=== PATIENT | male | born 1980 | race Caucasian/White ===

== ENCOUNTER 2019-11-11 16:41 | Emergency (ER) | payer MEDICAID, SELFPAY ==
[2019-11-11 17:29] VITALS: BP 116/77; PULSE 76; RESP 16; TEMP 36.2; O2SAT 99
[2019-11-11 17:43] VITALS: BP 116/77; PULSE 76; RESP 16; TEMP 36.2; O2SAT 99; BMI 27.0
[2019-11-11 18:11] VITALS: BP 116/77; PULSE 76; RESP 16; TEMP 36.2; O2SAT 99
[2019-11-11 19:05] LABS: Amphetamine Screen Urine Not Detected (Not Detect); Barbiturates, Urine Not Detected (Not Detect); Benzodiazepines Screen Urine Not Detected (Not Detect); Cannabinoid Screen Urine Not Detected (Not Detect); Cocaine Screen Urine POSITIVE (Not Detect); Opiate Screen Urine POSITIVE (Not Detect); Phencyclidine Screen Urine Not Detected (Not Detect)
--- NOTE | 2019-11-11 19:24 | PC.NURSE ---
summary faxed to [facility]
--- NOTE | 2019-11-11 21:47 | PC.NURSE ---
pt has been sleeping since shift change at 19:00.
[2019-11-11 22:06] VITALS: BP 106/63; PULSE 73; RESP 16; TEMP 36.6; O2SAT 100
--- NOTE | 2019-11-11 22:51 | PC.NURSE ---
[facility] called, will try to come and evaluate by 11:30pm
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
[2019-11-12] MEDS: LORazepam 1 MG TABLET PO (00:24)
[2019-11-12 00:37] VITALS: BP 106/63; PULSE 73
[2019-11-12] MEDS: cloNIDine HCL 0.1 MG TABLET PO (00:37)
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
[2019-11-12 00:55] VITALS: RESP 18
--- NOTE | 2019-11-12 01:52 | PC.NURSE ---
pt discharged, security standing by to assist. pt upset because I am homeless, and don't have anywhere to go. pt got dressed and walked out of pod with security. pt given cards for the living room program, to call for assistance with housing.
== END 2019-11-12 01:58 | disposition home or self-care (01) ==
PROVIDERS: Nurse Practitioner Family; Emergency Provider Emergency Medicine
DX: F14.10 Cocaine abuse, uncomplicated (principal); F11.10 Opioid abuse, uncomplicated; L03.818 Cellulitis of other sites; F31.9 Bipolar disorder, unspecified; Z59.0 Homelessness
CPT/HCPCS: 36415; 80307; 99284

== ENCOUNTER 2019-12-24 00:01 | Emergency (ER) | payer MEDICAID, SELFPAY ==
--- NOTE | 2019-12-24 00:55 | ED.GENADULT ---
HPI - General Adult General Chief complaint: Skin/Abscess/Foreign Body Stated complaint: bug bite Time Seen by Provider: 12/24/19 00:37 Source: patient Mode of arrival: ambulatory Limitations: no limitations History of Present Illness HPI narrative: patient comes to the emergency room complaining a skin rash. Patient states it is very itchy. Patient states he was up [place] sleeping [place] a bridge, found a mattress, since then he thinks he contracted bedbugs. Patient states he has been treated previously at [facility] for similar rash. Patient complaining that 1 of the source is infected on his right knee. Related Data Previous Rx's Medication Instructions Recorded doxycycline monohydrate 100 mg PO BID 10 Days #20 cap 11/12/19 cephalexin [Keflex] 500 mg PO BID #20 cap 12/24/19 doxycycline monohydrate 100 mg PO DAILY #10 cap 12/24/19 hydrocortisone 1 applic TOPICAL TID PRN #20 g 12/24/19 Allergies Allergy/AdvReac Type Severity Reaction Status Date / Time shellfish Allergy Unknown anaphylaxis Unverified 06/30/18 00:00 shellfish derived Allergy Unknown SWELLING Unverified 10/26/19 19:14 [SHELLFISH DERIVED] fluticasone [Flovent HFA] AdvReac Unknown anxiety Verified 05/31/18 00:00 Review of Systems Review of Systems: Constitutional : No Weight loss, No Fever, No Chills, No Night Sweats, No Fatigue, No Malaise ENT/Mouth : No Hearing loss, No Ear Pain, No Nasal Congestion, No Sinus Pain, No Hoarseness, No sore throat, No Rhinorrhea, No Swallowing Difficulty Eyes: No Eye Pain, No Swelling, No Redness, No Foreign Body, No Discharge, No Vision Changes Cardiovascular : No Chest Pain, No SOB, No Dyspnea on Exertion, No Orthopnea, No Edema, No Palpitations Respiratory : No Cough, No Sputum, No Wheezing, No Smoke Exposure, No Dyspnea Gastrointestinal : No Nausea, No Vomiting, No Diarrhea, No Constipation, complaining of right upper quadrant pain Genitourinary : no irregular bleeding, No Dysuria, No Urinary Frequency, No Hematuria, No Urinary Incontinence, No Urgency, No Flank Pain, No Urinary Flow Changes, No Hesitancy Musculoskeletal : No joint pain, No Myalgias, No Joint Swelling Skin : skin lesions , itchy skin Neuro : No Weakness, No Numbness, No Paresthesias, No Loss of Consciousness, No Dizziness, No Headache Psych : No Anxiety/Panic, No Depression, No SI/HI/AH/VH, No Social Issues, Heme/Lymph: No Bruising, No Bleeding,No Lymphadenopathy Endocrine : No Polyuria, No Polydipsia, No Temperature Intolerance ON LICENSE OF [facility] Past Medical History Medical History (Updated 12/24/19 @ 02:53 by Meagan Aldrich MD) Anxiety Asthma Bipolar disorder Cocaine abuse Depression Hepatitis C Suicidal behavior Social History Social History Alcohol intake: current Alcohol intake frequency: a few times a week Alcohol type: beer and hard liquor Smoking Status: Current every day smoker Substance Use Type: Crack/Cocaine and Heroin Advance Directives: No Physical Exam Vital Signs: Appearance: Alert. Oriented X3. No acute distress. Eyes: Pupils equal, round and reactive to light. ENT: Pharynx normal. Neck: Normal inspection. Neck supple. No lymph nodes noted. No crepitus CVS: Normal heart rate and rhythm. Pulses normal. Normal S1 and S2 Respiratory: No respiratory distress. Breath sounds normal. No Wheezing. No rales Abdomen: Soft , tender to palpation on right upper quadrant, No rigidity. No distention. good BS x4 Skin: Skin warm and dry. patient has multiple skin lesions in his face chest all extremities bearing his back. Patient is actively picking on them. patient has 1 lesion that seems infected on his knee, since that is draining pus, does not seem that there is an abscess underneath. Scab was removed, no further pus drained Extremities: No lower extremity edema. No lower extremity edema. No Lacerations. No Rash Neuro: Oriented X 3. No motor deficit. No sensory deficit. Moving all extermities. No slurred speech. Course Course Course Narrative: SI discussed the plan with the patient to treat the rash and the abscess, and discussed discharging the patient, all of a sudden patient started saying that he is homeless, he has had right upper quadrant pain for 2 days. I discussed with the patient that we will do an evaluation for abdominal pain. Patient has what happens after the evaluation, discussed with the patient if there is no acute pathology, he will be discharged as planned. The patient stated that he would like to be Section 12 for [place] 35 by in for being homeless and needing help with housing. Patient denies suicidal or homicidal ideation. I discussed with the patient that a housing situation is not a reason to order a section 12 or 35 I requested records from [facility] regarding the patient's last visit, down information we got was a visit for asthma and tinea pedis, the body rash was not mentioned. patient's chemistry and CT scan is pending. if no acute abdominal pathology, patient may be discharged. Sign-out given to Dr. Cruz. Medical Decision Making Lab Data Result diagrams: 12/24/19 02:21 12/24/19 02:21 Labs: Lab Results 12/24/19 12/24/19 Range/Units 02:21 02:21 WBC 9.8 (4.8-10.8) X10*3/uL RBC 4.69 (4.60-5.80) X10*6/uL Hgb 13.1 L (14.0-18.0) g/dl Hct 40.3 L (42-52) % MCV 85.9 (80-98) fL MCH 27.9 (27.0-33.0) pg MCHC 32.5 (31.0-36.0) g/dl RDW 16.1 H (11.0-16.0) % Plt Count 257 (160-400) X10*3/uL MPV 9.6 (9.4-12.4) fL Immature Gran % (Auto) 0.3 (0.0-0.4) % Neut % (Auto) 66.7 (45-73) % Lymph % (Auto) 21.3 (20-40) % [place] % (Auto) 7.9 (2-11) % Eos % (Auto) 3.1 (0-4) % Baso % (Auto) 0.7 (0-2) % Lymph # (Auto) 2.1 (1.2-4.9) X10*3/uL [place] # (Auto) 0.8 (0.1-1.2) X10*3/uL Eos # (Auto) 0.3 (0.0-0.4) X10*3/uL Baso # (Auto) 0.1 (0.0-0.2) X10*3/uL Abs Immat Gran (auto) 0.03 (0.00-0.03) X10*3/uL Absolute Neuts (auto) 6.5 (2.0-8.3) X10*3/uL Absolute Nucleated RBC 0.000 (0.0-0.012) X10*3/uL Nucleated RBC % (auto) 0.0 (0.0-0.2) /100WBC Ethyl Alcohol < 10 mg/dL Discharge Plan Discharge Clinical Impression: Rash and nonspecific skin eruption, Homelessness Cellulitis Qualifiers: Site of cellulitis: unspecified site Qualified Code(s): L03.90 - Cellulitis, unspecified Abdominal pain Qualifiers: Abdominal location: right upper quadrant Qualified Code(s): R10.11 - Right upper quadrant pain Patient Disposition: Home, Self-Care Instructions: Cellulitis (ED), Abdominal Pain (ED) Additional Instructions: Please follow-up with your primary care physician tomorrow. If you have any worsening or new symptoms, please return to the emergency room or call 911 Prescriptions: New doxycycline monohydrate 100 mg capsule 100 mg PO DAILY Qty: 10 RF: 0 cephalexin [Keflex] 500 mg capsule 500 mg PO BID Qty: 20 RF: 0 hydrocortisone 2.5 % cream 1 applic topical TID PRN (Reason: itching) Qty: 20 RF: 0 No Action doxycycline monohydrate 100 mg capsule 100 mg PO BID 10 Days Qty: 20 RF: 0
[2019-12-24 02:26] LABS: Basophils Absolute Auto 0.1 X10*3/uL (0.0-0.2); Basophils Percent Auto 0.7 % (0-2); Eosinophils Absolute Auto 0.3 X10*3/uL (0.0-0.4); Eosinophils Percent Auto 3.1 % (0-4); Hematocrit 40.3 % (42-52); Hemoglobin 13.1 g/dl (14.0-18.0); Imm Gran Abs Auto 0.03 X10*3/uL (0.00-0.03); Imm Gran Pct Auto 0.3 % (0.0-0.4); Lymphocytes Absolute Auto 2.1 X10*3/uL (1.2-4.9); Lymphocytes Percent Auto 21.3 % (20-40); Mean Corpuscular HGB Conc 32.5 g/dl (31.0-36.0); Mean Corpuscular Hemoglobin 27.9 pg (27.0-33.0); Mean Corpuscular Volume 85.9 fL (80-98); Mean Platelet Volume 9.6 fL (9.4-12.4); Monocytes Absolute Auto 0.8 X10*3/uL (0.1-1.2); Monocytes Percent Auto 7.9 % (2-11); Neutrophils Absolute Auto 6.5 X10*3/uL (2.0-8.3); Neutrophils Percent Auto 66.7 % (45-73); Platelet Count 257 X10*3/uL (160-400); Red Blood Count 4.69 X10*6/uL (4.60-5.80); Red Cell Distribution Width 16.1 % (11.0-16.0); White Blood Count 9.8 X10*3/uL (4.8-10.8)
[2019-12-24 02:28] LABS: MANUAL DIFF FLAG NO
[2019-12-24 02:45] LABS: Ethanol < 10 mg/dL
--- NOTE | 2019-12-24 02:45 | CT_ITS ---
EXAMINATION: CT ABDOMEN AND PELVIS WITHOUT CONTRAST CLINICAL INFORMATION: Right upper quadrant pain. COMPARISON: None. TECHNIQUE: Contiguous axial thin section helical images of the abdomen and pelvis were performed without oral or IV contrast. The data set was reformatted in the coronal and sagittal planes and reviewed on an independent workstation. DLP: 538 mGy-cm. FINDINGS: The visualized lung bases are clear. The visualized portions of the heart are unremarkable. The liver is of normal size and attenuation without focal lesions nor intrahepatic biliary ductal dilation. A normal gallbladder is identified. There is no wall thickening or discernible pericholecystic fluid. The spleen, pancreas, adrenal glands are unremarkable. Both kidneys are of normal size and attenuation without hydronephrosis or nephrolithiasis. There is no abdominal free fluid. There is neither mesenteric nor retroperitoneal lymphadenopathy. There is a large amount of stool throughout the colon; otherwise, unremarkable unopacified loops of small and large bowel are identified. There is no pelvic free fluid. The urinary bladder is unremarkable. There is neither pelvic nor inguinal lymphadenopathy. Bone windows: Neither sclerotic nor lytic bone lesions are identified. CT/CT abdomen pelvis wo con IMPRESSION: Large amount of stool throughout the colon. No evidence for acute abdominal or pelvic inflammatory or infectious processes. Automated exposure control (Care Dose) Adjustment of the mA and/or kv according to patient size (this includes techniques or standardized protocols for targeted exams where dose is matched to indication / reason for exam; i.e. extremities or head).
[2019-12-24 02:57] LABS: Alanine Aminotransferase 19 U/L (0-40); Alkaline Phosphatase 79 U/L (39-117); Anion Gap 9 (12-20); Aspartate Amino Transferase 21 U/L (5-37); Bilirubin Direct 0.2 mg/dL (0.0-0.5); Bilirubin Total 0.3 mg/dL (0.0-1.0); Blood Urea Nitrogen 11 mg/dL (9-16); Calcium 8.8 mg/dL (8.4-10.2); Carbon Dioxide 29 mmol/L (22-29); Chloride 101 mmol/L (96-108); Estimated Glomerular Filt Rate > 60; Glucose Random 99 mg/dL (60-115); Lipase 9 U/L (8-78); Potassium 4.3 mmol/l (3.3-5.1); Sodium 135 mmol/L (135-145); Total Protein 7.6 g/dL (6.5-8.0)
[2019-12-24] MEDS: cephALEXin 500 MG CAPSULE PO (03:15)
[2019-12-24 03:16] VITALS: BP 119/73; PULSE 83; RESP 18; TEMP 37.1; O2SAT 99
--- NOTE | 2019-12-24 03:18 | PC.NURSE ---
PT HAS BEEN SLEEPING BUT WHEN AWAKE PT IS PICKING AT HIS SOARS TO HIS ARMS
--- NOTE | 2019-12-24 03:36 | PC.NURSE ---
pt has been sleeping and easy to wake, pt was given a sandwhich and gingerale. pt given discharge instructions all questions answered. pt left with a steady gait. pt has been up going to the bathroom with no difficutly urinating
== END 2019-12-24 03:39 | disposition home or self-care (01) ==
PROVIDERS: Emergency Provider Emergency Medicine
DX: L03.90 Cellulitis, unspecified (principal); R10.11 Right upper quadrant pain; F17.200 Nicotine dependence, unspecified, uncomplicated; F14.90 Cocaine use, unspecified, uncomplicated; F11.90 Opioid use, unspecified, uncomplicated; Z71.6 Tobacco abuse counseling; Z79.899 Other long term (current) drug therapy; Z59.0 Homelessness
CPT/HCPCS: 36415; 74176; 80048; 80076; 80320; 83690; 85025; 99284

== ENCOUNTER 2020-01-07 00:08 | Emergency (ER) | payer MEDICAID, SELFPAY ==
[2020-01-07 00:09] VITALS: BP 136/84; PULSE 102; RESP 16; TEMP 36.1; O2SAT 96; BMI 25.8
[2020-01-07 02:00] VITALS: BP 136/84; PULSE 100; RESP 16; TEMP 36.1; O2SAT 96
--- NOTE | 2020-01-07 02:45 | ED.SKABFB ---
HPI - Skin/Abscess/Foreign Bdy General Chief complaint: Skin/Abscess/Foreign Body Stated complaint: Abscess/Constipation Time Seen by Provider: 01/07/20 01:08 Source: patient Mode of arrival: ambulatory Limitations: no limitations History of Present Illness HPI narrative: Patient comes emergency room complaining of an abscess in his right buttocks. It has been present for 4 days. Patient has tried squeezing pus out but nothing has come out. Patient has history of multiple abscesses, patient admits to IV drug use. Patient was seen here couple of weeks ago, patient was prescribed cephalexin and doxycycline for cellulitis, patient did not moss picker his medication at the pharmacy. Patient presents today with a new abscess. Related Data Previous Rx's Medication Instructions Recorded doxycycline monohydrate 100 mg PO BID 10 Days #20 cap 11/12/19 cephalexin [Keflex] 500 mg PO BID #20 cap 12/24/19 doxycycline monohydrate 100 mg PO DAILY #10 cap 12/24/19 hydrocortisone 1 applic TOPICAL TID PRN #20 g 12/24/19 clindamycin HCl 300 mg PO TID #30 cap 01/07/20 Allergies Allergy/AdvReac Type Severity Reaction Status Date / Time shellfish Allergy Unknown anaphylaxis Unverified 06/30/18 00:00 shellfish derived Allergy Unknown SWELLING Unverified 10/26/19 19:14 [SHELLFISH DERIVED] fluticasone [Flovent HFA] AdvReac Unknown anxiety Verified 05/31/18 00:00 Review of Systems Review of Systems: Constitutional : No Weight loss, No Fever, No Chills, No Night Sweats, No Fatigue, No Malaise ENT/Mouth : No Hearing loss, No Ear Pain, No Nasal Congestion, No Sinus Pain, No Hoarseness, No sore throat, No Rhinorrhea, No Swallowing Difficulty Eyes: No Eye Pain, No Swelling, No Redness, No Foreign Body, No Discharge, No Vision Changes Cardiovascular : No Chest Pain, No SOB, No Dyspnea on Exertion, No Orthopnea, No Edema, No Palpitations Respiratory : No Cough, No Sputum, No Wheezing, No Smoke Exposure, No Dyspnea Gastrointestinal : No Nausea, No Vomiting, No Diarrhea, No Constipation, No abdominal Pain, No Hematochezia, No Melena Genitourinary : no irregular bleeding, No Dysuria, No Urinary Frequency, No Hematuria, No Urinary Incontinence, No Urgency, No Flank Pain, No Urinary Flow Changes, No Hesitancy Musculoskeletal : No joint pain, No Myalgias, No Joint Swelling Skin : skin abscess in buttocks Neuro : No Weakness, No Numbness, No Paresthesias, No Loss of Consciousness, No Dizziness, No Headache Psych : No Anxiety/Panic, No Depression, No SI/HI/AH/VH, No Social Issues, Heme/Lymph: No Bruising, No Bleeding,No Lymphadenopathy Endocrine : No Polyuria, No Polydipsia, No Temperature Intolerance FORMERLY [facility], [facility] Past Medical History Medical History Anxiety Asthma Bipolar disorder Cocaine abuse Depression Hepatitis C PTSD (post-traumatic stress disorder) Suicidal behavior Social History Social History Alcohol intake: never Smoking Status: Current every day smoker Substance Use Type: Crack/Cocaine and Heroin Advance Directives: No Advance Directives Information Provided: No Physical Exam Vital Signs: Vital Signs: Last Vital Signs Temp 97 F 01/07/20 00:09 Pulse 102 H 01/07/20 00:09 Resp 16 01/07/20 00:09 BP 136/84 01/07/20 00:09 Pulse Ox 96 01/07/20 00:09 Body Mass Index 25.8 Appearance: Alert. Oriented X3. No acute distress. Eyes: Pupils equal, round and reactive to light. ENT: Pharynx normal. Neck: Normal inspection. Neck supple. No lymph nodes noted. No crepitus CVS: Normal heart rate and rhythm. Pulses normal. Normal S1 and S2 Respiratory: No respiratory distress. Breath sounds normal. No Wheezing. No rales Abdomen: Soft and nontender. No rigidity. No distention. good BS x4 Skin: patient has a abscess in the right buttocks, 3 cm x 3 cm, erythematous, cellulitis surrounding. Bedside ultrasound shows cobblestoning pattern with no pocket of pus tech could be I and D Extremities: No lower extremity edema. No lower extremity edema. No Lacerations. No Rash Neuro: Oriented X 3. No motor deficit. No sensory deficit. Moving all extermities. No slurred speech.. Course Course Course Narrative: patient's labs are pending. At this time oral clindamycin given. Pending on lab results, patient may be discharged versus admitted. Sign out given to Dr. Cruz Discharge Plan Discharge Clinical Impression: Cellulitis Qualifiers: Site of cellulitis: buttock Qualified Code(s): L03.317 - Cellulitis of buttock Patient Disposition: Home, Self-Care Instructions: Cellulitis (ED) Prescriptions: New clindamycin HCl 300 mg capsule 300 mg PO TID Qty: 30 RF: 0 No Action doxycycline monohydrate 100 mg capsule 100 mg PO BID 10 Days Qty: 20 RF: 0 doxycycline monohydrate 100 mg capsule 100 mg PO DAILY Qty: 10 RF: 0 cephalexin [Keflex] 500 mg capsule 500 mg PO BID Qty: 20 RF: 0 hydrocortisone 2.5 % cream 1 applic topical TID PRN (Reason: itching) Qty: 20 RF: 0
[2020-01-07 03:08] LABS: Basophils Absolute Auto 0.1 X10*3/uL (0.0-0.2); Basophils Percent Auto 0.5 % (0-2); Eosinophils Absolute Auto 0.4 X10*3/uL (0.0-0.4); Eosinophils Percent Auto 2.9 % (0-4); Hematocrit 39.3 % (42-52); Hemoglobin 13.1 g/dl (14.0-18.0); Imm Gran Abs Auto 0.05 X10*3/uL (0.00-0.03); Imm Gran Pct Auto 0.4 % (0.0-0.4); Lymphocytes Percent Auto 22.3 % (20-40); MANUAL DIFF FLAG NO; Mean Corpuscular HGB Conc 33.3 g/dl (31.0-36.0); Mean Corpuscular Hemoglobin 28.1 pg (27.0-33.0); Mean Corpuscular Volume 84.3 fL (80-98); Mean Platelet Volume 9.6 fL (9.4-12.4); Monocytes Absolute Auto 1.1 X10*3/uL (0.1-1.2); Neutrophils Absolute Auto 8.8 X10*3/uL (2.0-8.3); Neutrophils Percent Auto 65.9 % (45-73); Platelet Count 225 X10*3/uL (160-400); Red Blood Count 4.66 X10*6/uL (4.60-5.80); Red Cell Distribution Width 15.6 % (11.0-16.0); White Blood Count 13.3 X10*3/uL (4.8-10.8)
[2020-01-07 03:26] LABS: Lactic Acid 0.8 mmol/L (0.5-2.0)
[2020-01-07 03:29] LABS: Anion Gap 12 (12-20); Blood Urea Nitrogen 11 mg/dL (9-16); Carbon Dioxide 27 mmol/L (22-29); Chloride 97 mmol/L (96-108); Creatinine Clr Calc Pharmacy 135.7; Estimated Glomerular Filt Rate > 60; Glucose Random 95 mg/dL (60-115); Sodium 132 mmol/L (135-145)
[2020-01-07] MEDS: polyethylene glycoL 3350 17 GM POWD.PACK PO (03:44)
== END 2020-01-07 04:08 | disposition home or self-care (01) ==
PROVIDERS: Emergency Provider Emergency Medicine; PCP Pediatrics
DX: L03.317 Cellulitis of buttock (principal); F14.90 Cocaine use, unspecified, uncomplicated; F11.90 Opioid use, unspecified, uncomplicated; F17.200 Nicotine dependence, unspecified, uncomplicated; Z71.6 Tobacco abuse counseling; Z79.899 Other long term (current) drug therapy
CPT/HCPCS: 36415; 80048; 83605; 85025; 87040; 99284

== ENCOUNTER 2020-05-20 17:42 | Inpatient (IN) | payer MEDICAID, SELFPAY ==
--- NOTE | ~2020-05-20 | XR_ITS ---
EXAMINATION: XR CHEST CLINICAL INFORMATION: Overdose COMPARISON: None TECHNIQUE: Frontal view of the chest was obtained. FINDINGS: No significant abnormality is noted involving the heart, lungs, mediastinum, bony thorax or soft tissues. XR/XR chest 1V IMPRESSION: Unremarkable examination.
[2020-05-20 17:56] VITALS: BP 153/96; PULSE 113; RESP 12; TEMP 37.1; O2SAT 95; BMI 24.3
--- NOTE | 2020-05-20 18:05 | ED.OVERDOSE ---
HPI - Overdose General Chief Complaint: Overdose Stated Complaint: SI/?od Source: patient Mode of arrival: ambulatory Limitations: no limitations History of Present Illness HPI Narrative: 39-year-old male with past medical history of substance abuse, significant psychiatric history has been admitted to [facility] in the past, presents with intentional overdose. Stated that he purchased clonidine on the street and took 24 tablets, Klonopin unknown dosage took 6 tablets, approximately 20 bags of heroin and an undisclosed amount of cocaine. Patient states he has been depressed for a long period of time, and feels that his life is worthless. complaint: intentional overdose Onset (ago): hour(s) (Within the hour of arrival) Intent: suicide attempt How Overdose Was Discovered: other (Patient walked to the emergency department) Context: Intentional Overdose: drug/ETOH problems Associated symptoms: depression Treatments Prior to Arrival: none Related Data Previous Rx's Medication Instructions Recorded doxycycline monohydrate 100 mg PO BID 10 Days #20 cap 11/12/19 cephalexin [Keflex] 500 mg PO BID #20 cap 12/24/19 doxycycline monohydrate 100 mg PO DAILY #10 cap 12/24/19 hydrocortisone 1 applic TOPICAL TID PRN #20 g 12/24/19 clindamycin HCl 300 mg PO TID #30 cap 01/07/20 Allergies Allergy/AdvReac Type Severity Reaction Status Date / Time shellfish Allergy Unknown anaphylaxis Verified 01/07/20 03:36 shellfish derived Allergy Unknown SWELLING Verified 01/07/20 03:36 [SHELLFISH DERIVED] fluticasone [Flovent HFA] AdvReac Unknown anxiety Verified 01/07/20 03:36 Review of Systems Review of Systems: Constitutional: No Fever, No Chills ENT/Mouth: No Ear Pain, No Nasal Congestion, No sore throat Eyes: No Eye Pain, No Swelling, No Redness Cardiovascular: No Chest Pain, No SOB Respiratory: No Cough, No Sputum, No Dyspnea Gastrointestinal: No Nausea, No Vomiting, No Diarrhea, No Hematochezia, No Melena Genitourinary: No Dysuria, No Urinary Frequency, No Hematuria Musculoskeletal: No Myalgias Skin: No Skin Lesions, No rash Neuro: No Weakness, No Numbness, No Paresthesias, No Dizziness, No Headache Psych: No Anxiety, positive Depression, positive suicidal ideation, positive suicide attempt with overdose, positive opioid, cocaine abuse Heme/Lymph: No Lymphadenopathy Endocrine: No Polyuria, No Polydipsia Yes all other systems are reviewed and are negative [facility] Past Medical History Attestation statement: The following information was validated with the patient. Source: old records reviewed Medical History Anxiety Asthma Bipolar disorder Cocaine abuse Depression Hepatitis C PTSD (post-traumatic stress disorder) Suicidal behavior Social History Social History Alcohol intake: never Smoking Status: Unknown if ever smoked Substance Use Type: Crack/Cocaine and Heroin Advance Directives: No Advance Directives Information Provided: Yes Physical Exam Vital Signs: Vital Signs: Last Vital Signs Temp 98 F 05/21/20 00:30 Pulse 68 05/21/20 02:00 Resp 13 05/21/20 02:00 BP 98/60 05/21/20 02:00 Pulse Ox 98 05/21/20 02:00 Body Mass Index 24.3 Appearance: Alert. Oriented X3. No acute distress. Head: Normal external exam. Normocephalic. Atraumatic. No Alexis signs noted. No raccoon eyes noted Eyes: PERRLA. EOMI. Conjunctiva and sclera normal. Eyelids normal. ENT: TM's Normal. Pharynx normal. Uvula midline. Moist mucous membranes. No trismus noted. No drooling noted. No muffled voice noted. Neck: Normal inspection. Neck supple. No adenopathy. Thyroid Normal. No meningeal signs. No neck mass noted. CVS: Normal heart rate and rhythm. Heart sound normal. No murmurs noted. Pulses equal to all extremities. Respiratory: No respiratory distress. Painless inspiration. Breath sounds normal. No wheezes/rales/rhonchi noted. Chest nontender. No accessory muscle usage noted or decreased air movement noted. Abdomen: Soft and nontender. Bowel sounds normal in all 4 quadrants. No distention noted. No organomegaly noted. No visible injury noted. Back: No CVA tenderness. Full range of motion noted. Skin: Skin warm and dry. Normal skin color. Normal skin turgor. No rashes/lesions/lacerations noted. Extremities: No lower extremity edema. Extremities exhibit normal range of motion. Extremities nontender. Neuro: cranial nerves 2-12 intact, no focal neural deficits, strength 5/5 to all extremities, No motor deficit. No sensory deficit. Reflexes normal. Course Course Course Narrative: 39-year-old male with past medical history of substance abuse presents with intentional overdose. Referred to up-to-date for clonidine overdose, plan is for activated charcoal. Discussion with Dr Bonilla regarding plan, he agrees with this plan. Will monitor closely with cardiac and continuous pulse oximetry. Nurse in the psych pod reached out to [facility] as well as [facility], unable to obtain his medication list, has not been to the [facility] in the past year. Patient does state that the last time he picked up medications that were prescribed to him were December of 2019, he has been purchasing his psychiatric meds on the street. 6:16 p.m. EKG obtained, normal sinus, QT 390, QTC 449. Will repeat in approximately 2 hours. Patient evaluated by this HIGH [employer]CHOOL PH[employer]ICAL EDUCATION TEACHER approximately every 15 minutes for the 1st 2 hours, patient is alert and oriented x4, answering questions politely and appropriately, when he does fall asleep his O2 sats dropped down into the 80s, O2 was initiated by RN. 8:29 p.m. EKG is normal sinus, QT 438, QTC 459 no significant difference from 1st EKG. Patient is medically cleared, section 12 signed by this HIGH SCHO[employer] PH[employer] EDUCATION TEACHER. 2:47 a.m. Physician observation , section 12 bed search. MDM - Overdose Differential Diagnosis Differential diagnosis: Likely suicide attempt by multiple drug overdose Medical Records Attestation: I reviewed the patient's medical records. Lab Data Attestation: I reviewed the patient's lab results. Result diagrams: 05/20/20 18:43 05/20/20 18:45 Labs: Lab Results 05/20/20 05/20/20 05/20/20 Range/Units 18:43 18:43 18:43 WBC 9.7 (4.8-10.8) X10*3/uL RBC 4.07 L (4.60-5.80) X10*6/uL Hgb 12.2 L (14.0-18.0) g/dl Hct 36.0 L (42-52) % MCV 88.5 (80-98) fL MCH 30.0 (27.0-33.0) pg MCHC 33.9 (31.0-36.0) g/dl RDW 13.6 (11.0-16.0) % Plt Count 194 (160-400) X10*3/uL MPV 9.8 (9.4-12.4) fL Immature Gran % (Auto) 0.3 (0.0-0.4) % Neut % (Auto) 69.7 (45-73) % Lymph % (Auto) 17.5 L (20-40) % [place] % (Auto) 9.6 (2-11) % Eos % (Auto) 2.4 (0-4) % Baso % (Auto) 0.5 (0-2) % Lymph # (Auto) 1.7 (1.2-4.9) X10*3/uL [place] # (Auto) 0.9 (0.1-1.2) X10*3/uL Eos # (Auto) 0.2 (0.0-0.4) X10*3/uL Baso # (Auto) 0.1 (0.0-0.2) X10*3/uL Abs Immat Gran (auto) 0.03 (0.00-0.03) X10*3/uL Absolute Neuts (auto) 6.8 (2.0-8.3) X10*3/uL Absolute Nucleated RBC 0.000 (0.0-0.012) X10*3/uL Nucleated RBC % (auto) 0.0 (0.0-0.2) /100WBC Sodium (135-145) mmol/L Potassium (3.3-5.1) mmol/L Chloride (96-108) mmol/L Carbon Dioxide (22-29) mmol/L Anion Gap (12-20) BUN (9-16) mg/dL Creatinine (0.5-1.4) mg/dL Estim Creat Clear Calc Estimated GFR Random Glucose (60-115) mg/dL Lactic Acid 1.5 (0.5-2.0) mmol/L Calcium (8.4-10.2) mg/dL Magnesium 2.0 (1.6-2.6) mg/dL Troponin I High Sens (<3.5-35.0) ng/L Salicylates (15-30) mg/dL Urine Opiates Screen (Not Detect) Acetaminophen (<30) mcg/mL Ur Barbiturates Screen (Not Detect) Ur Phencyclidine Scrn (Not Detect) Ur Amphetamines Screen (Not Detect) U Benzodiazepines Scrn (Not Detect) Urine Cocaine Screen (Not Detect) U Marijuana (THC) Screen (Not Detect) Ethyl Alcohol mg/dL Coronavirus (PCR) (Negative) Influenza Type A (PCR) (Negative) Influenza Type B (PCR) (Negative) RSV RNA Qual (PCR) (Negative) 05/20/20 05/20/20 05/20/20 Range/Units 18:43 18:45 18:45 WBC (4.8-10.8) X10*3/uL RBC (4.60-5.80) X10*6/uL Hgb (14.0-18.0) g/dl Hct (42-52) % MCV (80-98) fL MCH (27.0-33.0) pg MCHC (31.0-36.0) g/dl RDW (11.0-16.0) % Plt Count (160-400) X10*3/uL MPV (9.4-12.4) fL Immature Gran % (Auto) (0.0-0.4) % Neut % (Auto) (45-73) % Lymph % (Auto) (20-40) % [place] % (Auto) (2-11) % Eos % (Auto) (0-4) % Baso % (Auto) (0-2) % Lymph # (Auto) (1.2-4.9) X10*3/uL [place] # (Auto) (0.1-1.2) X10*3/uL Eos # (Auto) (0.0-0.4) X10*3/uL Baso # (Auto) (0.0-0.2) X10*3/uL Abs Immat Gran (auto) (0.00-0.03) X10*3/uL Absolute Neuts (auto) (2.0-8.3) X10*3/uL Absolute Nucleated RBC (0.0-0.012) X10*3/uL Nucleated RBC % (auto) (0.0-0.2) /100WBC Sodium 137 (135-145) mmol/L Potassium 4.1 (3.3-5.1) mmol/L Chloride 100 (96-108) mmol/L Carbon Dioxide 30 H (22-29) mmol/L Anion Gap 11 L (12-20) BUN 10 (9-16) mg/dL Creatinine 0.82 (0.5-1.4) mg/dL Estim Creat Clear Calc 115.8 Estimated GFR > 60 Random Glucose 150 H D (60-115) mg/dL Lactic Acid (0.5-2.0) mmol/L Calcium 8.8 (8.4-10.2) mg/dL Magnesium (1.6-2.6) mg/dL Troponin I High Sens < 3.5 (<3.5-35.0) ng/L Salicylates < 5.0 L (15-30) mg/dL Urine Opiates Screen (Not Detect) Acetaminophen < 1 (<30) mcg/mL Ur Barbiturates Screen (Not Detect) Ur Phencyclidine Scrn (Not Detect) Ur Amphetamines Screen (Not Detect) U Benzodiazepines Scrn (Not Detect) Urine Cocaine Screen (Not Detect) U Marijuana (THC) Screen (Not Detect) Ethyl Alcohol < 10 mg/dL Coronavirus (PCR) (Negative) Influenza Type A (PCR) (Negative) Influenza Type B (PCR) (Negative) RSV RNA Qual (PCR) (Negative) 05/20/20 05/20/20 Range/Units 18:45 20:24 WBC (4.8-10.8) X10*3/uL RBC (4.60-5.80) X10*6/uL Hgb (14.0-18.0) g/dl Hct (42-52) % MCV (80-98) fL MCH (27.0-33.0) pg MCHC (31.0-36.0) g/dl RDW (11.0-16.0) % Plt Count (160-400) X10*3/uL MPV (9.4-12.4) fL Immature Gran % (Auto) (0.0-0.4) % Neut % (Auto) (45-73) % Lymph % (Auto) (20-40) % [place] % (Auto) (2-11) % Eos % (Auto) (0-4) % Baso % (Auto) (0-2) % Lymph # (Auto) (1.2-4.9) X10*3/uL [place] # (Auto) (0.1-1.2) X10*3/uL Eos # (Auto) (0.0-0.4) X10*3/uL Baso # (Auto) (0.0-0.2) X10*3/uL Abs Immat Gran (auto) (0.00-0.03) X10*3/uL Absolute Neuts (auto) (2.0-8.3) X10*3/uL Absolute Nucleated RBC (0.0-0.012) X10*3/uL Nucleated RBC % (auto) (0.0-0.2) /100WBC Sodium (135-145) mmol/L Potassium (3.3-5.1) mmol/L Chloride (96-108) mmol/L Carbon Dioxide (22-29) mmol/L Anion Gap (12-20) BUN (9-16) mg/dL Creatinine (0.5-1.4) mg/dL Estim Creat Clear Calc Estimated GFR Random Glucose (60-115) mg/dL Lactic Acid (0.5-2.0) mmol/L Calcium (8.4-10.2) mg/dL Magnesium (1.6-2.6) mg/dL Troponin I High Sens (<3.5-35.0) ng/L Salicylates (15-30) mg/dL Urine Opiates Screen POSITIVE H (Not Detect) Acetaminophen (<30) mcg/mL Ur Barbiturates Screen Not Detected (Not Detect) Ur Phencyclidine Scrn Not Detected (Not Detect) Ur Amphetamines Screen Not Detected (Not Detect) U Benzodiazepines Scrn Not Detected (Not Detect) Urine Cocaine Screen POSITIVE H (Not Detect) U Marijuana (THC) Screen Not Detected (Not Detect) Ethyl Alcohol mg/dL Coronavirus (PCR) NEGATIVE (Negative) Influenza Type A (PCR) NEGATIVE (Negative) Influenza Type B (PCR) NEGATIVE (Negative) RSV RNA Qual (PCR) NEGATIVE (Negative) Imaging Data Chest x-ray: Attestation: I personally reviewed and interpreted this imaging study as follows: Radiologist's impression: EXAMINATION: XR CHEST CLINICAL INFORMATION: Overdose COMPARISON: None TECHNIQUE: Frontal view of the chest was obtained. FINDINGS: No significant abnormality is noted involving the heart, lungs, mediastinum, bony thorax or soft tissues. XR/XR chest 1V IMPRESSION: Unremarkable examination. ECG Data Attestation: I personally reviewed and interpreted this ECG as follows: ECG interpretation date: 05/20/20 ECG interpretation time: 18:16 Interpretation: Vent. rate 80 BPM OH interval 144 ms QRS duration 86 ms QT/QTc 390/449 ms P-R-T axes 25 61 43 Normal sinus rhythm Normal ECG No previous ECGs available Second EKG May 20, 2020 time 8:29 p.m. Vent. rate 66 BPM OH interval 182 ms QRS duration 90 ms QT/QTc 438/459 ms P-R-T axes 23 26 15 Normal sinus rhythm Normal ECG When compared with ECG of 20-MAY-2020 18:16, No significant change was found Critical Care Time Critical Care Time Critical Care Time: Yes Total Critical Care Time: 120 Attestation: I have personally provided critical care time exclusive of time spent on separately billable procedures. Time includes review of laboratory data, radiology results, discussion with consultants, and monitoring for potential decompensation. Interventions were performed as documented. Discharge Plan Discharge Clinical Impression: Drug overdose Qualifiers: Encounter type: initial encounter Injury intent: intentional self-harm Qualified Code(s): T50.902A - Poisoning by unspecified drugs, medicaments and biological substances, intentional self-harm, initial encounter Suicide attempt by multiple drug overdose Qualifiers: Encounter type: initial encounter Qualified Code(s): T50.912A - Poisoning by multiple unspecified drugs, medicaments and biological substances, intentional self-harm, initial encounter Prescriptions: No Action doxycycline monohydrate 100 mg capsule 100 mg PO BID 10 Days Qty: 20 RF: 0 doxycycline monohydrate 100 mg capsule 100 mg PO DAILY Qty: 10 RF: 0 cephalexin [Keflex] 500 mg capsule 500 mg PO BID Qty: 20 RF: 0 hydrocortisone 2.5 % cream 1 applic topical TID PRN (Reason: itching) Qty: 20 RF: 0 clindamycin HCl 300 mg capsule 300 mg PO TID Qty: 30 RF: 0
--- NOTE | 2020-05-20 18:08 | ECG_ITS ---
Test Reason : OVERDOSE Blood Pressure : / mmHG Vent. Rate : 080 BPM Atrial Rate : 080 BPM P-R Int : 144 ms QRS Dur : 086 ms QT Int : 390 ms P-R-T Axes : 025 061 043 degrees QTc Int : 449 ms Normal sinus rhythm Normal ECG No previous ECGs available Referred By: Rama Evans Electronically Signed By:VERNON CRESPO
[2020-05-20 18:18] VITALS: BP 153/96; PULSE 113; RESP 12; TEMP 37.1; O2SAT 95
[2020-05-20] MEDS: Activated charcoaL 50 GM/240 ML ORAL.SUSP 100 GM PO (18:28)
[2020-05-20 18:53] LABS: MANUAL DIFF FLAG NO
[2020-05-20 18:54] LABS: Basophils Absolute Auto 0.1 X10*3/uL (0.0-0.2); Basophils Percent Auto 0.5 % (0-2); Eosinophils Absolute Auto 0.2 X10*3/uL (0.0-0.4); Eosinophils Percent Auto 2.4 % (0-4); Hemoglobin 12.2 g/dl (14.0-18.0); Imm Gran Abs Auto 0.03 X10*3/uL (0.00-0.03); Imm Gran Pct Auto 0.3 % (0.0-0.4); Lymphocytes Absolute Auto 1.7 X10*3/uL (1.2-4.9); Lymphocytes Percent Auto 17.5 % (20-40); Mean Corpuscular HGB Conc 33.9 g/dl (31.0-36.0); Mean Corpuscular Volume 88.5 fL (80-98); Mean Platelet Volume 9.8 fL (9.4-12.4); Monocytes Absolute Auto 0.9 X10*3/uL (0.1-1.2); Monocytes Percent Auto 9.6 % (2-11); Neutrophils Absolute Auto 6.8 X10*3/uL (2.0-8.3); Neutrophils Percent Auto 69.7 % (45-73); Platelet Count 194 X10*3/uL (160-400); Red Blood Count 4.07 X10*6/uL (4.60-5.80); Red Cell Distribution Width 13.6 % (11.0-16.0); White Blood Count 9.7 X10*3/uL (4.8-10.8)
--- NOTE | 2020-05-20 19:05 | PC.NURSE ---
Nurse to nurse received from SILAS Weber. Pt sleeping initially when this RN entered room, awoke to tactile stimulation. Pupils remain pinpoint, answers questions appropriately. Denies pain or diff breathing. When asleep, SPO2 noted to drop to 77%, up to 97% immediately when awoken. Pt placed on 2L via NC for support. HR/RR WNL. Sitter in place, will continue to closely monitor.
[2020-05-20 19:24] LABS: Lactic Acid 1.5 mmol/L (0.5-2.0)
[2020-05-20 19:25] LABS: Ethanol < 10 mg/dL
[2020-05-20 19:32] LABS: Acetaminophen LAB < 1 mcg/mL (<30); Salicylate < 5.0 mg/dL (15-30)
[2020-05-20 19:33] LABS: Influenza A PCR NEGATIVE (Negative); Influenza B PCR NEGATIVE (Negative); Resp Syncy Virus RNA Qual PCR NEGATIVE (Negative); SARS COV2 PCR INHOUSE NEGATIVE (Negative)
[2020-05-20 19:34] LABS: Troponin-I High Sensitivity < 3.5 ng/L (<3.5-35.0)
[2020-05-20 19:57] LABS: Anion Gap 11 (12-20); Blood Urea Nitrogen 10 mg/dL (9-16); Calcium 8.8 mg/dL (8.4-10.2); Carbon Dioxide 30 mmol/L (22-29); Chloride 100 mmol/L (96-108); Creatinine Clr Calc Pharmacy 115.8; Estimated Glomerular Filt Rate > 60; Glucose Random 150 mg/dL (60-115); Potassium 4.1 mmol/L (3.3-5.1); Sodium 137 mmol/L (135-145)
[2020-05-20 20:06] VITALS: BP 97/58; PULSE 68; RESP 18; TEMP 37.1; O2SAT 95
--- NOTE | 2020-05-20 20:13 | ECG_ITS ---
Test Reason : REPEAT Blood Pressure : / mmHG Vent. Rate : 066 BPM Atrial Rate : 066 BPM P-R Int : 182 ms QRS Dur : 090 ms QT Int : 438 ms P-R-T Axes : 023 026 015 degrees QTc Int : 459 ms Normal sinus rhythm Normal ECG When compared with ECG of 20-MAY-2020 18:16, No significant change was found Referred By: Rama Evans Electronically Signed By:VERNON CRESPO
--- NOTE | 2020-05-20 20:40 | MHC.RECOVSUP ---
Overdose/SI o Current location: ED-21 o Identified substance use concern: Opioid and other Benzodiazepine - Overdose <del>-</del> <del>Withdrawal</del> <del>-</del> <del>Seeking</del> <del>ATS</del> <del>(detox)</del> - Support ? Intervention: o ATS bed search started/completed/in process <del>o</del> <del>MAT</del> <del>started</del> <del>or</del> <del>to</del> <del>be</del> <del>started</del> <del>o</del> <del>Community</del> <del>resources</del> <del>provided</del> o Harm reduction discussion ? Plan: <del>o</del> <del>Referral</del> <del>to</del> <del>[facility]</del> <del>o</del> <del>Bed</del> <del>search</del> <del>in</del> <del>progress</del> <del>to</del> o Follow up tomorrow o Patient awaiting crisis evaluation o <del>Patient</del> <del>to</del> <del>follow</del> <del>up</del> <del>with</del> <del>[facility]</del> <del>after</del> <del>discharge</del> ? Additional information: I was able to engage briefly with client and gather that pt currently suffers from homelessness. pt is not on MAT but has been in a clinic in the past. pt also stated that he has a hx of mental health. pt currently has a sitter by his bedside and at the moment and is waiting on [facility] for a crisis evaluation. Please follow up in the am if pt is still in the ED.
[2020-05-20 21:00] LABS: Amphetamine Screen Urine Not Detected (Not Detect); Barbiturates, Urine Not Detected (Not Detect); Benzodiazepines Screen Urine Not Detected (Not Detect); Cannabinoid Screen Urine Not Detected (Not Detect); Cocaine Screen Urine POSITIVE (Not Detect); Opiate Screen Urine POSITIVE (Not Detect); Phencyclidine Screen Urine Not Detected (Not Detect)
[2020-05-20 21:10] VITALS: BP 102/63; PULSE 64; RESP 16; O2SAT 99
[2020-05-20 22:16] VITALS: BP 94/55; PULSE 63; RESP 14; TEMP 36.4; O2SAT 98
--- NOTE | 2020-05-20 22:54 | PC.NURSE ---
Pt awake and alert, cleared to eat per ED provider. Snacks provided. Sit remains in place
[2020-05-21] VITALS (9 sets, daily range): BP systolic 95–116; BP diastolic 57–70; PULSE 55–85; RESP 10–17; TEMP 36.4–36.6; O2SAT 95–98
--- NOTE | 2020-05-21 07:59 | PC.NURSE ---
[facility] contacted regarding evaluation - no clinician available until after 12 today.
--- NOTE | 2020-05-21 11:29 | PC.NURSE ---
this rn spoke with calista (rn) from [facility] [phone]. pt had methadone 100mg po x 1 on 05/20/20 at 1018 per calista (rn), aware.
--- NOTE | 2020-05-21 16:02 | PC.NURSE ---
PT ambulated to pod with steady gait, calm and cooperative, denies complaints. PT waiting to be seen.
--- NOTE | 2020-05-21 19:45 | MHC.CARE ---
Pt evaluated by CARE team due to [facility] being unable to send a clinician within 24 hours of referral for assessment. Disposition for inpt psychiatric admission, being held in ED on Sect 12a status. Pt is agreeable to and advocating for an admission at this time. Pt will remain in ED until bed placement is secured.
--- NOTE | 2020-05-21 19:56 | PC.NURSE ---
Report received. PT is resting in bed. Calm and cooperative. PT is inpatient bed search.
[2020-05-21] MEDS: LORazepam 1 MG TABLET PO (22:14)
--- NOTE | 2020-05-21 22:33 | PC.NURSE ---
PT was complaining about not receiving his night time meds. PT stated that he usually takes remeron and clonazepam at bed time to help him sleep. This nurse called the PT's pharmacy on file to confirm med list but was not effective. Pharmacy stated that PT has not picked up meds from [facility] since 2019. PT stated that he uses a different pharmacy, but that pharmacy was not open at this time. Provider informed. Provider ordered one time dose of Ativan to help PT relax and sleep.
[2020-05-22] VITALS (9 sets, daily range): BP systolic 126–150; BP diastolic 81–92; PULSE 55–86; RESP 16–20; TEMP 36.7; O2SAT 96–98
[2020-05-22] MEDS: Acetaminophen 325 MG TABLET 650 MG PO (00:31)
[2020-05-22] MEDS: Ibuprofen 800 MG TABLET PO (06:07)
[2020-05-22] MEDS: Acetaminophen 325 MG TABLET PO ×2 (10:06→16:36)
[2020-05-22] MEDS: Ibuprofen 400 MG TABLET PO ×2 (10:07→19:24)
--- NOTE | 2020-05-22 10:17 | PC.NURSE ---
pt c/o 10/18 lower back pain, med x 1 with motrin 400mg po x 1 and tylenol 325mg po x 1 at 1005
[2020-05-22] MEDS: LORazepam 1 MG TABLET PO ×2 (12:59→19:24)
--- NOTE | 2020-05-22 13:11 | PC.NURSE ---
pt c/o increase anxiety, med x 1 with ativan 1mg po. pt is resting, resp even and unlabored. pt aware of plan of care.
--- NOTE | 2020-05-22 18:45 | PC.NURSE ---
Pt resting in bed at current, no complaints at this time, calm and cooperative.
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
[2020-05-23] VITALS (8 sets, daily range): BP systolic 119–150; BP diastolic 68–88; PULSE 68–110; RESP 16; TEMP 36.2–36.6; O2SAT 98; BMI 28.7
[2020-05-23] MEDS: LORazepam 1 MG TABLET PO ×3 (09:38→20:18)
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
[2020-05-23] MEDS: Ibuprofen 400 MG TABLET PO (13:54)
[2020-05-23] MEDS: cloNIDine HCL 0.1 MG TABLET PO ×2 (14:25→20:18)
[2020-05-23] MEDS: Mirtazapine 7.5 MG TABLET PO (20:19)
[2020-05-23] MEDS: traZODone HCL 50 MG TABLET PO (20:21)
[2020-05-24 06:45] VITALS: BP 116/80; PULSE 78; RESP 16; TEMP 36.7; O2SAT 97
[2020-05-24 08:40] VITALS: BP 116/80; PULSE 78
[2020-05-24] MEDS: LORazepam 1 MG TABLET PO ×2 (08:40→18:58)
[2020-05-24] MEDS: cloNIDine HCL 0.1 MG TABLET PO ×2 (08:40→18:58)
--- NOTE | 2020-05-24 12:06 | HO.ADDICTCON ---
History of Present Illness Date of Service: 05/24/2020 Chief Complaint: RECURRENT MAJOR DEPRESSION,PTSD,OPIATE USE DISORDE HPI Past Psychiatric History: IP: Several Suicide attempts: 2 Trials-several Recent meds from [facility] [phone] Remeron 7.5 mg hs, Wellbutrin XL 150 mg a.m. Atarax 25 mg 1-2 tabs bid prn-last filled around Feb 15, 2020 Diagnostics Vital Signs (24Hr): Vital Signs - 24 hr 05/23/20 14:25 05/23/20 16:14 05/23/20 20:00 Temperature 97.1 F 97.8 F Pulse Rate 78 71 68 Respiratory Rate Blood Pressure 143/88 H 119/76 150/88 H Pulse Oximetry 05/23/20 20:18 05/24/20 06:45 05/24/20 08:40 Temperature 98.1 F Pulse Rate 88 78 78 Respiratory Rate 16 Blood Pressure 150/68 H 116/80 116/80 Pulse Oximetry 97 Body Mass Index 28.7 Labs Results: 05/20/20 18:43 05/20/20 18:45 Imaging Radiology Impressions: ITS Impressions Chest X-Ray 05/20/20 18:07 IMPRESSION: Unremarkable examination. Medications Medications Current Medications Generic Name Dose Route Start Last Admin Trade Name Freq PRN Reason Stop Dose Admin Bupropion HCl 150 mg 05/24/20 09:00 05/24/20 08:42 Bupropion Hcl Xl 150 Mg Tab.Er.24h PO Not Given DAILY ASIF Clonidine HCl 0.1 mg 05/23/20 14:20 05/24/20 08:40 Clonidine Hcl 0.1 Mg Tablet PO 0.1 mg TID PRN Administration withdrawal Protocol Ibuprofen 400 mg 05/22/20 09:43 05/23/20 13:54 Ibuprofen 400 Mg Tablet PO 05/27/20 09:42 400 mg TID PRN Administration Pain, Mild (Pain Scale 1-3) Lorazepam 1 mg 05/23/20 13:58 05/24/20 08:40 Lorazepam 1 Mg Tablet PO 1 mg Q6H PRN Administration withdrawal sx Magnesium Hydroxide 30 ml 05/22/20 20:38 Milk Of Magnesia 30 Ml Oral.Susp PO DAILY PRN Constipation Methadone HCl 100 mg 05/23/20 09:30 05/24/20 08:34 Methadone Hcl 1 Mg/0.1 Ml Oral.Conc PO 100 mg DAILY ASIF Administration Mirtazapine 7.5 mg 05/23/20 21:00 05/23/20 20:19 Mirtazapine 7.5 Mg Tablet PO 7.5 mg BEDTIME ASIF Administration Nicotine 21 mg 05/22/20 21:00 05/24/20 08:43 Nicotine 21 Mg Patch.Td24 TRANSDERMA Not Given DAILY SAIF Nicotine Polacrilex 4 mg 05/22/20 20:53 Nicotine Polacrilex 2 Mg Gum BUCCAL Q2H PRN Nicotine Cravings Trazodone HCl 50 mg 05/23/20 14:32 05/23/20 20:21 Trazodone Hcl 50 Mg Tablet PO 50 mg BEDTIME PRN Administration Insomnia Allergies Allergies Allergy/AdvReac Type Severity Reaction Status Date / Time shellfish Allergy Unknown anaphylaxis Verified 01/07/20 03:36 shellfish derived Allergy Unknown SWELLING Verified 01/07/20 03:36 [SHELLFISH DERIVED] fluticasone [Flovent HFA] AdvReac Unknown anxiety Verified 01/07/20 03:36 Assessment & Plan Greater than 50% of the session was spent on counseling and/or coordination of care [facility] Past Medical History Medical History (Updated 05/23/20 @ 16:19 by Daily Vasquez APRN) Anxiety Asthma Bipolar disorder Cocaine abuse Cocaine use disorder Depression Hepatitis C Opioid use disorder PTSD (post-traumatic stress disorder) PTSD (post-traumatic stress disorder) Recurrent major depression-severe Suicidal behavior Social History Social History Household Members: None Housing: Other Housing Other:: rents a room Do you presently have visiting nurse or other home services: No Alcohol intake: never Smoking Status: Current every day smoker Tobacco Type: Cigarette Packs Per Day: 1 Cigarettes Per Day: 20.0 Smoked in Last 30 Days: Yes Patient Interested in Nicotine Replacement: Yes Patient Given Instructions on How to Stop Smoking: Yes Date Education Initiated: 05/22/20 Second Hand Smoke Exposure: Yes Use of substances other than those prescribed or required for medical reasons: Yes Substance Use Type: Crack/Cocaine, Heroin and IV Drugs Substance Use Frequency: Daily Last Used Substance: Just Prior to Admission Currently Displaying Signs/Symptoms of Drug Intoxication Withdrawal: Yes (pt reports sweats, generalized body aches) Any prior treatment program specific to substance use: Yes Have you been hit, kicked, punched, or otherwise hurt by someone within the past year? If so, by whom?: No Do you feel safe in your current relationship?: Yes Is there a partner from a previous relationship who is making you feel unsafe now?: No Are you made to feel afraid or neglected: No Advance Directives: No Advance Directives Information Provided: Yes Do you have thoughts of harming others: None Do you have a plan to hurt others: No Plan Recently lost weight without trying: Yes service: No Sexual orientation: Straight/Heterosexual
[2020-05-24 13:31] VITALS: BP 110/69; PULSE 86
[2020-05-24 16:00] VITALS: PULSE 111
--- NOTE | 2020-05-24 16:39 | PM.EVENT ---
Event Note Date of Service: 05/24/20 Event Note: Addiction consult note: COnsult requested as patient was requesting increase of methadone dose. Currently patient is being prescribed 100mg methadone QD. Patient seen on [facility]5. He reports that he often feels sore, has body aches and is sweaty. He denies any addiciotnal sx. When asked how long sx have been present, pt reports they have been there for quite some time. He states he is seen at [facility] and and dose was last increased 2-3 weeks ago. Plan: -Increased to methadone doses should be done in collaboration with outpatient OTP -Pt educated regarding this process and verbalized understanding and agreement
--- NOTE | 2020-05-24 18:00 | P.PNPSI_ITS ---
Subjective Subjective Date of Service: 05/24/20 Reason For Visit: RECURRENT MAJOR DEPRESSION,PTSD,OPIATE USE DISORDE Subjective Notes: Conditional Voluntary Interim History: Pt reports sleep disturbance and body aches. Call to Dr. Roberts's office for med reconciliation without call back [phone].Pt considering TDN. Reports addiction team will not increase Methadone and he is not able to go to [facility] ([facility] he reports). Discussed completing withdrawal, getting on a secure regime and assessing other available options which he agrees to Medication Compliance: Yes Side effects from medications: No Attending Groups: No Review of Systems Review of Systems Yes all other systems are reviewed and are negative (denies) Reports behavioral changes Psychiatric: Reports abnormal sleep pattern, Reports behavioral changes and Reports irritability Mental Status Exam Mental Status Exam Patient Appearance: Disheveled Patient Orientation: Person, Place, Time and Situation Level of Consciousness: Awake and Alert Patient Behavior: Guarded, Talkative, Suspicious and Anxious Mood Description: Withdrawn Affect Description: Flat Patient Cognition Impaired: No Ability to Follow Directions: Good Speech Pattern: Spontaneous Speech Memory Description: Episodic Impaired Hallucinations: None Delusions: Not Present Thought Process: Distracted and Rumination Thought Content: positive for Anthon and positive for Circumstantial Depressive Symptoms: Increased Anxiety, Insomnia, Difficulty Sleeping and Thoughts of /Suicide (denies SI) Abnormal Motor Activity Signs and Symptoms: Restlessness Judgement: Good Diagnostics Vital Signs (24Hr): Vital Signs - 24 hr 05/23/20 20:00 05/23/20 20:18 05/24/20 06:45 Temperature 97.8 F 98.1 F Pulse Rate 68 88 78 Respiratory Rate 16 Blood Pressure 150/88 H 150/68 H 116/80 Pulse Oximetry 97 05/24/20 08:40 05/24/20 13:31 Temperature Pulse Rate 78 86 Respiratory Rate Blood Pressure 116/80 110/69 Pulse Oximetry Body Mass Index 28.7 Labs Results: 05/20/20 18:43 05/20/20 18:45 Imaging Radiology Impressions: ITS Impressions Chest X-Ray 05/20/20 18:07 IMPRESSION: Unremarkable examination. Medications Medications Current Medications Generic Name Dose Route Start Last Admin Trade Name Freq PRN Reason Stop Dose Admin Clonazepam 0.5 mg 05/24/20 21:00 Clonazepam 0.5 Mg Tablet PO BID ASIF Clonidine HCl 0.1 mg 05/23/20 14:20 05/24/20 08:40 Clonidine Hcl 0.1 Mg Tablet PO 0.1 mg TID PRN Administration withdrawal Protocol Fluoxetine HCl 10 mg 05/25/20 09:00 Fluoxetine Hcl Oral Solution 20 Mg/5 Ml Solution PO DAILY ASIF Ibuprofen 400 mg 05/22/20 09:43 05/23/20 13:54 Ibuprofen 400 Mg Tablet PO 05/27/20 09:42 400 mg TID PRN Administration Pain, Mild (Pain Scale 1-3) Lorazepam 1 mg 05/23/20 13:58 05/24/20 08:40 Lorazepam 1 Mg Tablet PO 1 mg Q6H PRN Administration withdrawal sx Magnesium Hydroxide 30 ml 05/22/20 20:38 Milk Of Magnesia 30 Ml Oral.Susp PO DAILY PRN Constipation Methadone HCl 100 mg 05/23/20 09:30 05/24/20 08:34 Methadone Hcl 1 Mg/0.1 Ml Oral.Conc PO 100 mg DAILY ASIF Administration Mirtazapine 15 mg 05/24/20 21:00 Mirtazapine 15 Mg Tablet PO BEDTIME ASIF Nicotine 21 mg 05/22/20 21:00 05/24/20 08:43 Nicotine 21 Mg Patch.Td24 TRANSDERMA Not Given DAILY ASIF Nicotine Polacrilex 4 mg 05/22/20 20:53 Nicotine Polacrilex 2 Mg Gum BUCCAL Q2H PRN Nicotine Cravings Trazodone HCl 50 mg 05/23/20 14:32 05/23/20 20:21 Trazodone Hcl 50 Mg Tablet PO 50 mg BEDTIME PRN Administration Insomnia Allergies Allergies Allergy/AdvReac Type Severity Reaction Status Date / Time shellfish Allergy Unknown anaphylaxis Verified 01/07/20 03:36 shellfish derived Allergy Unknown SWELLING Verified 01/07/20 03:36 [SHELLFISH DERIVED] fluticasone [Flovent HFA] AdvReac Unknown anxiety Verified 01/07/20 03:36 Assessment & Plan Assessment & Plan (1) Suicide attempt by multiple drug overdose: Qualifiers: Encounter type: initial encounter Qualified Code(s): T50.912A - Poisoning by multiple unspecified drugs, medicaments and biological substances, intentional self-harm, initial encounter Status: Acute Code(s): T50.912A - Poisoning by multiple unspecified drugs, medicaments and biological substances, intentional self-harm, initial encounter Assessment and Plan: Suicide attempt-pt has recently lost partner and is struggling with his loss. (2) Opioid use disorder: Status: Acute Code(s): F11.99 - Opioid use, unspecified with unspecified opioid-induced disorder Assessment and Plan: -Continue Methadone- Message left with [facility] to discuss if his team wants to increase dosing (3) Cocaine use disorder: Status: Acute Code(s): F14.10 - Cocaine abuse, uncomplicated Assessment and Plan: -Pt discussed going to [facility] upon discharge or longer term residential program. He is unable to go to [facility] but will consider other options (4) PTSD (post-traumatic stress disorder): Status: Acute Code(s): F43.10 - Post-traumatic stress disorder, unspecified (5) Recurrent major depression-severe: Status: Acute Code(s): F33.2 - Major depressive disorder, recurrent severe without psychotic features Assessment and Plan: Depressed, angry and withdrawn today. Prozac 10 mg daily Increase Remeron to 15 mg hs Wellbutrin XL 150 mg a.m. discontinued- pt refuses Klonopin 0.5 mg bid Message left with Dr. Roberts's office to discuss regime [phone]. Greater than 50% of the session was spent on counseling and/or coordination of care Reason for contiued inpatient stay Substantial Risk for: harm to self, harm to others, inability to function and rapid decompensation
[2020-05-24 18:58] VITALS: BP 123/81; PULSE 111
[2020-05-24 19:05] VITALS: BP 123/81; PULSE 111; TEMP 36.2
[2020-05-24] MEDS: clonazePAM 0.5 MG TABLET PO (22:36)
[2020-05-24] MEDS: Mirtazapine 15 MG TABLET PO (22:36)
[2020-05-24] MEDS: traZODone HCL 50 MG TABLET PO (22:37)
[2020-05-25] VITALS (8 sets, daily range): BP systolic 110–115; BP diastolic 63–75; PULSE 86–116; RESP 16; TEMP 36.9; O2SAT 99
[2020-05-25] MEDS: clonazePAM 0.5 MG TABLET PO (08:13)
[2020-05-25] MEDS: FLUoxetine HCl Oral Solution 20 MG/5 ML SOLUTION 10 MG PO (08:13)
[2020-05-25 08:55] LABS: Estimated Average Glucose 105 mg/dL; Hemoglobin A1c % 5.3 %
[2020-05-25 09:19] LABS: Cholesterol 203 mg/dL; HDL Cholesterol 42 mg/dL; LDL Cholesterol Calculated 141 mg/dl; Triglycerides 100 mg/dL
[2020-05-25] MEDS: LORazepam 1 MG TABLET PO ×2 (09:22→19:27)
[2020-05-25] MEDS: cloNIDine HCL 0.1 MG TABLET PO ×2 (09:22→19:27)
[2020-05-25 09:41] LABS: Thyroid Stimulating Hormone 0.86 uIU/mL (0.32-4.0)
[2020-05-25] MEDS: Nicotine Polacrilex 2 MG GUM 4 MG BUCCAL (12:43)
[2020-05-25] MEDS: Ibuprofen 400 MG TABLET PO (12:43)
--- NOTE | 2020-05-25 19:48 | P.PNPSI_ITS ---
Subjective Subjective Date of Service: 05/25/20 Reason For Visit: RECURRENT MAJOR DEPRESSION,PTSD,OPIATE USE DISORDE Subjective Notes: Conditional Voluntary Interim History: Discussed discharge planning for early next week. Sleep improving, last evening pt reports 5.5 hours straight. Klonopin titration completed. Medication Compliance: Yes Side effects from medications: No Attending Groups: No Review of Systems Review of Systems Yes all other systems are reviewed and are negative (denies) Psychiatric: Reports anxiety, Reports depression and Reports suicidal ideation (denies) Mental Status Exam Mental Status Exam Patient Appearance: Appropriate Patient Orientation: Person, Place, Time and Situation Level of Consciousness: Alert Patient Behavior: Talkative Mood Description: Depressed and Anxious Affect Description: Flat Patient Cognition Impaired: No Ability to Follow Directions: Good Speech Pattern: Spontaneous Speech Memory Description: Intact Hallucinations: None Delusions: Not Present Thought Process: Goal Oriented Thought Content: positive for Intact Depressive Symptoms: Increased Anxiety and Increased Irritability Judgement: Good Diagnostics Vital Signs (24Hr): Vital Signs - 24 hr 05/25/20 03:00 05/25/20 07:00 05/25/20 09:22 Temperature 98.4 F Pulse Rate 115 H Respiratory Rate 16 16 Blood Pressure 115/75 Pulse Oximetry 99 05/25/20 11:00 05/25/20 19:27 Temperature Pulse Rate 92 86 Respiratory Rate 16 Blood Pressure 110/72 114/63 Pulse Oximetry Body Mass Index 28.7 Labs Results: 05/20/20 18:43 05/20/20 18:45 Labs: Laboratory Results - last 48 hr 05/25/20 05/25/20 05/25/20 08:20 08:21 08:21 Estimat Average Glucose 105 Hemoglobin A1c % 5.3 Triglycerides 100 Cholesterol 203 LDL Cholesterol, Calc 141 HDL Cholesterol 42 25-OH Vitamin D Total 22.0 TSH 0.86 Imaging Radiology Impressions: ITS Impressions Chest X-Ray 05/20/20 18:07 IMPRESSION: Unremarkable examination. Medications Medications Current Medications Generic Name Dose Route Start Last Admin Trade Name Freq PRN Reason Stop Dose Admin Clonazepam 1 mg 05/25/20 21:00 Clonazepam 1 Mg Tablet PO BID ASIF Clonidine HCl 0.1 mg 05/23/20 14:20 05/25/20 19:27 Clonidine Hcl 0.1 Mg Tablet PO 0.1 mg TID PRN Administration withdrawal Protocol Fluoxetine HCl 10 mg 05/25/20 09:00 05/25/20 08:13 Fluoxetine Hcl Oral Solution 20 Mg/5 Ml Solution PO 10 mg DAILY ASIF Administration Ibuprofen 400 mg 05/22/20 09:43 05/25/20 12:43 Ibuprofen 400 Mg Tablet PO 05/27/20 09:42 400 mg TID PRN Administration Pain, Mild (Pain Scale 1-3) Lorazepam 1 mg 05/23/20 13:58 05/25/20 19:27 Lorazepam 1 Mg Tablet PO 1 mg Q6H PRN Administration withdrawal sx Magnesium Hydroxide 30 ml 05/22/20 20:38 Milk Of Magnesia 30 Ml Oral.Susp PO DAILY PRN Constipation Methadone HCl 100 mg 05/23/20 09:30 05/25/20 08:13 Methadone Hcl 1 Mg/0.1 Ml Oral.Conc PO 100 mg DAILY ASIF Administration Mirtazapine 15 mg 05/24/20 21:00 05/24/20 22:36 Mirtazapine 15 Mg Tablet PO 15 mg BEDTIME ASIF Administration Nicotine 21 mg 05/22/20 21:00 05/25/20 08:18 Nicotine 21 Mg Patch.Td24 TRANSDERMA Not Given DAILY ASIF Nicotine Polacrilex 4 mg 05/22/20 20:53 05/25/20 12:43 Nicotine Polacrilex 2 Mg Gum BUCCAL 4 mg Q2H PRN Administration Nicotine Cravings Trazodone HCl 50 mg 05/23/20 14:32 05/24/20 22:37 Trazodone Hcl 50 Mg Tablet PO 50 mg BEDTIME PRN Administration Insomnia Allergies Allergies Allergy/AdvReac Type Severity Reaction Status Date / Time shellfish Allergy Unknown anaphylaxis Verified 01/07/20 03:36 shellfish derived Allergy Unknown SWELLING Verified 01/07/20 03:36 [SHELLFISH DERIVED] fluticasone [Flovent HFA] AdvReac Unknown anxiety Verified 01/07/20 03:36 Assessment & Plan Assessment & Plan (1) Suicide attempt by multiple drug overdose: Qualifiers: Encounter type: initial encounter Qualified Code(s): T50.912A - Poisoning by multiple unspecified drugs, medicaments and biological substances, intentional self-harm, initial encounter Status: Acute Code(s): T50.912A - Poisoning by multiple unspecified drugs, medicaments and biological substances, intentional self-harm, initial encounter Assessment and Plan: Suicide attempt-pt has recently lost partner and is struggling with his loss. We are re-establishing his regime from out pt. Feeling improved-relieved he can return to his out pt team-Dr. Armando Mccracken titration, Mirtazapine, Prozac (2) Opioid use disorder: Status: Acute Code(s): F11.99 - Opioid use, unspecified with unspecified opioid-induced disorder Assessment and Plan: -Continue Methadone- Message left with [facility] on admit to discuss if his team wants to increase dosing (3) Cocaine use disorder: Status: Acute Code(s): F14.10 - Cocaine abuse, uncomplicated Assessment and Plan: -Pt discussed going to [facility] upon discharge, however [facility] is the only option currently and pt refuses this. He is asking to return home. (4) PTSD (post-traumatic stress disorder): Status: Acute Code(s): F43.10 - Post-traumatic stress disorder, unspecified Assessment and Plan: Discussed losses-pleased he will return to [facility] out pt (5) Recurrent major depression-severe: Status: Acute Code(s): F33.2 - Major depressive disorder, recurrent severe without psychotic features Assessment and Plan: Reporting some improvement. Continue current regime-Klonopin titration to OP dosing, Prozac, Mirtazapine. Greater than 50% of the session was spent on counseling and/or coordination of care Reason for contiued inpatient stay Substantial Risk for: harm to self, inability to function and rapid decompensation
[2020-05-25] MEDS: clonazePAM 1 MG TABLET PO (19:53)
[2020-05-25] MEDS: Mirtazapine 15 MG TABLET PO (19:53)
[2020-05-26 07:00] VITALS: BP 105/72; PULSE 78; RESP 16; TEMP 36.8; O2SAT 97
[2020-05-26] MEDS: LORazepam 1 MG TABLET PO ×2 (08:10→18:58)
[2020-05-26 08:11] VITALS: BP 103/67; PULSE 89; RESP 18
[2020-05-26] MEDS: FLUoxetine HCl Oral Solution 20 MG/5 ML SOLUTION 10 MG PO (08:38)
[2020-05-26] MEDS: clonazePAM 1 MG TABLET PO ×2 (08:38→20:19)
--- NOTE | 2020-05-26 14:48 | P.PNPSI_ITS ---
Subjective Subjective Date of Service: 05/26/20 Reason For Visit: RECURRENT MAJOR DEPRESSION,PTSD,OPIATE USE DISORDE Subjective Notes: Conditional Voluntary Interim History: Asking for discharge to attend niece's birthday libertarian. Encouraged pt to wait until we can discuss regime with OP team. Reports sleep is in and out . COWS discontinued. Tolerating dosing increase onf 05/25. Isolative, not a group person . No word from [facility] yet regarding Methadone dosing. Medication Compliance: Yes Side effects from medications: No Attending Groups: No Review of Systems Review of Systems Yes all other systems are reviewed and are negative (denies) Mental Status Exam Mental Status Exam Patient Appearance: Fatigued Patient Orientation: Person, Place, Time and Situation Level of Consciousness: Alert Patient Behavior: Guarded, Talkative, Anxious, Resistive to Care and Distractible Mood Description: Depressed, Anxious and Angry Affect Description: Labile Patient Cognition Impaired: No Ability to Follow Directions: Good Speech Pattern: Spontaneous Speech Memory Description: Intact Hallucinations: None Delusions: Not Present Thought Process: Rumination Thought Content: positive for [place] and positive for Circumstantial Depressive Symptoms: Increased Anxiety, Difficulty Sleeping and Thoughts of /Suicide (denies) Abnormal Motor Activity Signs and Symptoms: Restlessness Judgement: Fair Diagnostics Vital Signs (24Hr): Vital Signs - 24 hr 05/25/20 19:00 05/25/20 19:27 05/26/20 07:00 Temperature 98.2 F Pulse Rate 86 86 78 Respiratory Rate 16 Blood Pressure 114/67 114/63 105/72 Pulse Oximetry 97 05/26/20 08:11 Temperature Pulse Rate 89 Respiratory Rate 18 Blood Pressure 103/67 Pulse Oximetry Body Mass Index 28.7 Labs Results: 05/20/20 18:43 05/20/20 18:45 Labs: Laboratory Results - last 48 hr 05/25/20 05/25/20 05/25/20 08:20 08:21 08:21 Estimat Average Glucose 105 Hemoglobin A1c % 5.3 Triglycerides 100 Cholesterol 203 LDL Cholesterol, Calc 141 HDL Cholesterol 42 25-OH Vitamin D Total 22.0 TSH 0.86 Imaging Radiology Impressions: ITS Impressions Chest X-Ray 05/20/20 18:07 IMPRESSION: Unremarkable examination. Medications Medications Current Medications Generic Name Dose Route Start Last Admin Trade Name Freq PRN Reason Stop Dose Admin Clonazepam 1 mg 05/25/20 21:00 05/26/20 08:38 Clonazepam 1 Mg Tablet PO 1 mg BID ASIF Administration Clonidine HCl 0.1 mg 05/23/20 14:20 05/25/20 19:27 Clonidine Hcl 0.1 Mg Tablet PO 0.1 mg TID PRN Administration withdrawal Protocol Fluoxetine HCl 10 mg 05/25/20 09:00 05/26/20 08:38 Fluoxetine Hcl Oral Solution 20 Mg/5 Ml Solution PO 10 mg DAILY ASIF Administration Ibuprofen 400 mg 05/22/20 09:43 05/25/20 12:43 Ibuprofen 400 Mg Tablet PO 05/27/20 09:42 400 mg TID PRN Administration Pain, Mild (Pain Scale 1-3) Lorazepam 1 mg 05/23/20 13:58 05/26/20 08:10 Lorazepam 1 Mg Tablet PO 1 mg Q6H PRN Administration withdrawal sx Magnesium Hydroxide 30 ml 05/22/20 20:38 Milk Of Magnesia 30 Ml Oral.Susp PO DAILY PRN Constipation Methadone HCl 100 mg 05/23/20 09:30 05/26/20 08:38 Methadone Hcl 1 Mg/0.1 Ml Oral.Conc PO 100 mg DAILY ASIF Administration Mirtazapine 15 mg 05/24/20 21:00 05/25/20 19:53 Mirtazapine 15 Mg Tablet PO 15 mg BEDTIME ASIF Administration Nicotine 21 mg 05/22/20 21:00 05/26/20 08:44 Nicotine 21 Mg Patch.Td24 TRANSDERMA Not Given DAILY ASIF Nicotine Polacrilex 4 mg 05/22/20 20:53 05/25/20 12:43 Nicotine Polacrilex 2 Mg Gum BUCCAL 4 mg Q2H PRN Administration Nicotine Cravings Trazodone HCl 50 mg 05/23/20 14:32 05/24/20 22:37 Trazodone Hcl 50 Mg Tablet PO 50 mg BEDTIME PRN Administration Insomnia Allergies Allergies Allergy/AdvReac Type Severity Reaction Status Date / Time shellfish Allergy Unknown anaphylaxis Verified 01/07/20 03:36 shellfish derived Allergy Unknown SWELLING Verified 01/07/20 03:36 [SHELLFISH DERIVED] fluticasone [Flovent HFA] AdvReac Unknown anxiety Verified 01/07/20 03:36 Assessment & Plan Assessment & Plan (1) Suicide attempt by multiple drug overdose: Qualifiers: Encounter type: initial encounter Qualified Code(s): T50.912A - Poisoning by multiple unspecified drugs, medicaments and biological substances, intentional self-harm, initial encounter Status: Acute Code(s): T50.912A - Poisoning by multiple unspecified drugs, medicaments and biological substances, intentional self-harm, initial encounter Assessment and Plan: Pt reports no SI, asking for discharge. (2) Opioid use disorder: Status: Acute Code(s): F11.99 - Opioid use, unspecified with unspecified opioid-induced disorder Assessment and Plan: -Continue Methadone-OP with [facility] (3) Cocaine use disorder: Status: Acute Code(s): F14.10 - Cocaine abuse, uncomplicated Assessment and Plan: -Pt discussed going to [facility] upon discharge, however [facility] is the only option currently and pt refuses this. He is asking to return home. (4) PTSD (post-traumatic stress disorder): Status: Acute Code(s): F43.10 - Post-traumatic stress disorder, unspecified Assessment and Plan: Discussed losses-pleased he will return to [facility] pt (5) Recurrent major depression-severe: Status: Acute Code(s): F33.2 - Major depressive disorder, recurrent severe without psychotic features Assessment and Plan: Re-establishing previous regime. Greater than 50% of the session was spent on counseling and/or coordination of care Reason for contiued inpatient stay Substantial Risk for: harm to self, inability to function and rapid decompensation
[2020-05-26 18:58] VITALS: BP 138/80; PULSE 92; TEMP 36.4
[2020-05-26] MEDS: cloNIDine HCL 0.1 MG TABLET PO (18:58)
[2020-05-26] MEDS: traZODone HCL 50 MG TABLET PO (20:19)
[2020-05-26] MEDS: Mirtazapine 15 MG TABLET PO (20:19)
[2020-05-26] MEDS: Ibuprofen 400 MG TABLET PO (20:19)
[2020-05-27 04:42] LABS: Folate > 20.0 ng/mL (> or = 4.0); Vitamin B12 638 pg/mL (200-900)
[2020-05-27 06:00] VITALS: BP 87/52; PULSE 77; RESP 16; TEMP 36.3; O2SAT 96
[2020-05-27] MEDS: FLUoxetine HCl Oral Solution 20 MG/5 ML SOLUTION 10 MG PO (09:45)
[2020-05-27] MEDS: Cholecalciferol (Vitamin D3) 25 MCG TABLET PO (09:46)
[2020-05-27] MEDS: clonazePAM 1 MG TABLET PO (09:54)
[2020-05-27] MEDS: LORazepam 1 MG TABLET PO (10:37)
[2020-05-27] MEDS: Nicotine Polacrilex 2 MG GUM 4 MG BUCCAL (11:45)
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
== END 2020-05-27 12:55 | disposition home or self-care (01) | DRG 751 ==
LOC: HO.ED 05-22 19:05 → HO.PM5 05-22 19:51
PROVIDERS: Nurse Practitioner Family; Admitting Provider Psychiatry & Neurology Psychiatry; Emergency Provider Student in an Organized Health Care Education/Training Program; PCP Pediatrics; Visit Provider Clinical Nurse Specialist Psychiatric/Mental Health, Adult
DX: F33.2 Major depressive disorder, recurrent severe without psychotic features (principal); R45.851 Suicidal ideations; F11.20 Opioid dependence, uncomplicated; F17.210 Nicotine dependence, cigarettes, uncomplicated; F14.10 Cocaine abuse, uncomplicated; T50.912A Poisoning by multiple unspecified drugs, medicaments and biological substances, intentional self-harm, initial encounter; F43.10 Post-traumatic stress disorder, unspecified; Z59.0 Homelessness; Z20.822 Contact with and (suspected) exposure to COVID-19; Z91.5 Personal history of self-harm; Z71.6 Tobacco abuse counseling; Z79.899 Other long term (current) drug therapy
CPT/HCPCS: 0241U; 36415; 71045; 80048; 80061; 80143; 80179; 80307; 80320; 82306; 82607; 82746; 83036; 83605; 83735; 84443; 84484; 85025; 93005; 99285; 99291; 99292

== ENCOUNTER 2021-07-24 11:19 | Inpatient (IN) | payer OTHER, SELFPAY ==
--- NOTE | ~2021-07-24 | XR_ITS ---
EXAMINATION: LEFT HIP AND LEFT KNEE X-RAY CLINICAL INFORMATION: Pain post fall COMPARISON: None TECHNIQUE: 2 views of the left hip and 4 views of the left knee FINDINGS: Left hip: Bone alignment is normal. No fracture or dislocation is seen. The joint space is normal. Soft tissues are normal. Left knee: Bone alignment is normal. No fracture or dislocation is seen. Joint spaces are normal. There is no joint effusion. XR/XR knee LT 4V IMPRESSION: Unremarkable exams.
--- NOTE | ~2021-07-24 | XR_ITS ---
EXAMINATION: LEFT HIP AND LEFT KNEE X-RAY CLINICAL INFORMATION: Pain post fall COMPARISON: None TECHNIQUE: 2 views of the left hip and 4 views of the left knee FINDINGS: Left hip: Bone alignment is normal. No fracture or dislocation is seen. The joint space is normal. Soft tissues are normal. Left knee: Bone alignment is normal. No fracture or dislocation is seen. Joint spaces are normal. There is no joint effusion. XR/XR hip LT min 2V IMPRESSION: Unremarkable exams.
[2021-07-24 11:30] VITALS: BP 106/66; PULSE 72; RESP 18; TEMP 36.4; O2SAT 96
[2021-07-24 11:54] VITALS: BMI 35.5
--- NOTE | 2021-07-24 14:44 | PC.ADMIT ---
Pt is a 40 year old male recently broken up from relationship. Pt was a transfer from [facility] where he was transferred from a medical floor status post overdose from Cocaine and Heroine, in a suicide attempt after breaking up with his girlfriend. Pt reports he had met her during substance abuse treatment when both were sober, and both of them recently relapsed; pt reports he is now homeless and she has placed a restraining order against him. Pt presents as very irritable. Reportedly he was making threats towards staff when at [facility]. Pt told this play writer he regrets not dying from the overdose but stated he feels safe here. 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 Pt denies any medical issues, currently on Methadone, last does given at [facility] today, 60mg. Provider aware, pt on 15min checks, he is voluntary.
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
[2021-07-24] MEDS: clonazePAM 1 MG TABLET PO ×2 (16:45→20:13)
--- NOTE | 2021-07-24 17:41 | P.HPPS_ITS ---
HPI Chief Complaint: major depressive disorder HPI Past Psychiatric History: IP: Several Suicide attempts: 2 Trials-several Recent meds from [facility] [phone] Remeron 7.5 mg hs, Wellbutrin XL 150 mg a.m. Atarax 25 mg 1-2 tabs bid prn-last filled around Feb 15, 2020 [facility] Medical History Anxiety Asthma Bipolar disorder Cocaine abuse Depression Hepatitis C PTSD (post-traumatic stress disorder) Suicidal behavior Family History: Depression, anxiety, addiction Social History: Two children, ages 23 and 24 who live in [place]. Homeless No family in the [facility] currently. Trauma History: Childhood-age 6-8 Diagnostics Vital Signs (24Hr): Vital Signs - 24 hr 07/24/21 11:30 Temperature 97.6 F Pulse Rate 72 Respiratory Rate 18 Blood Pressure 106/66 Pulse Oximetry 96 BMI result Body Mass Index 35.5 Meds/Allergies Meds Home Medications Medication Instructions Recorded Confirmed Type methadone 10 mg/mL oral 100 mg PO DAILY 05/21/20 05/21/20 History concentrate (Methadone Intensol) Allergies Allergies Allergy/AdvReac Type Severity Reaction Status Date / Time shellfish Allergy Unknown anaphylaxis Verified 01/07/20 03:36 shellfish derived Allergy Unknown SWELLING Verified 01/07/20 03:36 [SHELLFISH DERIVED] fluticasone [Flovent HFA] AdvReac Unknown anxiety Verified 01/07/20 03:36
--- NOTE | 2021-07-24 18:38 | P.HPPS_ITS ---
HPI Date of Service: 07/24/21 Chief Complaint: major depressive disorder Sources of Information: patient interviewed, chart reviewed and crisis/core team assessment reviewed HPI Subjective Notes: Duncan Warning and Conditional Voluntary Healthcare Proxy: No Guardianship: No Medical Problems Affecting Mental Status: No Narrative: 40 yo male, transfer from [facility], medical admit s/p overdose. Precipitant he reports is a break up with his girlfriend. Hx of depression, opiate use d/o, asthma. Pt on 07/17 took an OD of IV cocaine-injected 20 grams, heroin with resulting hypoxia, PE vs initial bad motion artifact with normal CTA x 3 days, now without any PE evidence but with artifact and left side pneumonia which his is finishing up antibiotics for. Pt placed on Prednisone, Methadone decrease from 70 mg daily to 60 mg daily and pt with a mild rhabdomylosis. Pt was violent and threatening to kill others at [facility]. Met with pt who is known to our team who reports after [address] 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 He was hired by a local agency, entered a relationship and reported her agenda was to put together an apartment and get her kids back from [facility] . Pt reports that both were sober and one night they decided to drink alcohol-both relapsed, things became out of control, police were called, pt spent 3 days incarcerated and was told he could not go home, even though all is in his name and he supports the home. When released, he began to do shots and cocaine, lost a good amount of sleep and believes he was psychotic briefly due to his use and lack of rest. He was admitted to [facility] on 07/17, spent 4 days in ICU and this was not good for my mental stability so I threatened people because nothing was happening to address my needs . Pt asks for admit to a [facility]. We did contact [facility] Probation Dept. Pt does have warrants and letters of admission verification are required to be sent to Officer Sarath Martinez, pt's staff antisubmarine officer. Past Psychiatric History: IP: Several 2014-present [facility] documents >34 in terventions for pt Suicide attempts: 2 with several significant overdoses of prescribed and recreational substances Trials-several Recent meds from [facility] [phone] Remeron 7.5 mg hs, Wellbutrin XL 150 mg a.m. Atarax 25 mg 1-2 tabs bid prn-last filled around Feb 15, 2020 Medical Evaluation Reviewed: Yes [facility] Medical History Anxiety Asthma Bipolar disorder Cocaine abuse Depression Hepatitis C PTSD (post-traumatic stress disorder) Suicidal behavior Narrative: GERD Family History: Depression, anxiety, addiction Social History: Born in [place], raised by maternal grandmother with two half siblings. Mom at age 26 from asthma. Dad from a heroin OD. 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 Two children, ages 23 and 24 who live in [place]. Homeless No family in the [facility] currently. Legal: [facility]-probation -hx of distribution of a class A substance, driving without a license, possession, assault/battery, breaking and entering, [place] ([place]), juvenile incarceration. Hx of 10 yr incarceration for home invasion. Substance History: Cocaine, Heroin, Alcohol, Cannabis, Trauma History: Childhood-age 6-8 Diagnostics Vital Signs (24Hr): Vital Signs - 24 hr 07/24/21 11:30 Temperature 97.6 F Pulse Rate 72 Respiratory Rate 18 Blood Pressure 106/66 Pulse Oximetry 96 BMI result Body Mass Index 35.5 Meds/Allergies Meds Home Medications Medication Instructions Recorded Confirmed Type methadone 10 mg/mL oral 100 mg PO DAILY 05/21/20 05/21/20 History concentrate (Methadone Intensol) Allergies Allergies Allergy/AdvReac Type Severity Reaction Status Date / Time shellfish Allergy Unknown anaphylaxis Verified 01/07/20 03:36 shellfish derived Allergy Unknown SWELLING Verified 01/07/20 03:36 [SHELLFISH DERIVED] fluticasone [Flovent HFA] AdvReac Unknown anxiety Verified 01/07/20 03:36 Mental Status Exam Mental Status Exam Patient Appearance: Appropriate Patient Orientation: Person, Place, Time and Situation Level of Consciousness: Alert Patient Behavior: Talkative and Good Eye Contact Mood Description: Suspicious, Depressed, Anxious, Nervous and Apprehensive Affect Description: Flat Patient Cognition Impaired: No Ability to Follow Directions: Good Speech Pattern: Spontaneous Speech Memory Description: Episodic Impaired Hallucinations: None Delusions: Paranoid Ideation Perceptual Disturbances: Depersonalization and Derealization Thought Process: Distracted and Rumination Thought Content: positive for Circumstantial and positive for Suicidal Ideation Depressive Symptoms: Increased Anxiety, Increased Irritability, Hopelessness, Unhappiness and Thoughts of /Suicide Abnormal Motor Activity Signs and Symptoms: Restlessness Judgement: Fair Assessment & Plan Assessment & Plan (1) Recurrent major depression-severe: Status: Acute Code(s): F33.2 - Major depressive disorder, recurrent severe without psychotic features (2) PTSD (post-traumatic stress disorder): Status: Acute Code(s): F43.10 - Post-traumatic stress disorder, unspecified (3) Cocaine use disorder: Status: Acute Code(s): F14.10 - Cocaine abuse, uncomplicated (4) Opioid use disorder: Status: Acute Code(s): F11.99 - Opioid use, unspecified with unspecified opioid-induced disorder Plan 40 yo male, s/p significant overdose in suicide attempt after relapse. Precipitant appears to be a break up with girlfriend after they relapsed together and the situation became out of control with violence and police involvement. Pt is wanting transition to a [facility] and willing to regain sobriety and emotional stability. Plan: Continue current regime. Collateral contacts-?couples meeting if there is no restraining order active Contact with probation Medication eval Diagnostics as needed Patient educated on: diagnosis, medication risk/benefits, substance abuse and therapeutic strategies Informed Consent: understands Reason for continued inpatient stay Substantial Risk for: harm to self, harm to others, inability to function, rapid decompensation and med/psych decompensation
[2021-07-24 20:10] VITALS: BP 114/62; PULSE 114; TEMP 35.9
[2021-07-24] MEDS: Prazosin HCL 1 MG CAPSULE PO (20:13)
[2021-07-24] MEDS: hydrOXYzine HCL 25 MG TABLET PO (20:16)
[2021-07-25] MEDS: Omeprazole 40 MG CAPSULE.DR PO (06:51)
[2021-07-25] MEDS: hydrOXYzine HCL 25 MG TABLET PO ×2 (09:22→19:34)
[2021-07-25] MEDS: clonazePAM 1 MG TABLET PO ×2 (09:22→19:34)
[2021-07-25] MEDS: methADONE HCl 20 MG/2 ML ORAL.CONC 60 MG PO (10:58)
--- NOTE | 2021-07-25 11:18 | PM.EVENT ---
Event Note Date of Service: 07/25/21 Event Note: I went up to see patient and he doesn't want to evaluated. Will attempt when informed that he's agreable.
[2021-07-25] MEDS: OLANZapine 5 MG TABLET PO (12:21)
[2021-07-25] MEDS: methADONE HCl 20 MG/2 ML ORAL.CONC 10 MG PO (13:21)
[2021-07-25] MEDS: ARIPiprazole 5 MG TABLET PO (13:22)
[2021-07-25] MEDS: FLUoxetine HCl 10 MG CAPSULE 30 MG PO (13:22)
[2021-07-25] MEDS: LORazepam 1 MG TABLET PO (14:35)
--- NOTE | 2021-07-25 15:37 | MHC.CLN ---
NUTRITION CONSULT FOR 8# WEIGHT LOSS AND POOR INTAKE. REVIEW OF WEIGHT HX DOES NOT SUPPORT WEIGHT LOSS. PATIENT STATED THAT HE HAD WEIGHED 285#; CURRENT WEIGHT IS 233#. REQUESTED ENSURE. PATIENT STATED THAT HAS LIMITED VARIETY IN DIET. STATED THAT EATING PIZZA AND BURGERS, WITH NO ADDITIONAL VEGETABLES, FRUIT OR MILK. RD ORDERING ENSURE BID TO PROVIDE ADDITIONAL 700 KCALS, 40 GRAMS PROTEIN, VITAMINS/MINERALS.
--- NOTE | 2021-07-25 16:29 | P.PNPSI_ITS ---
Subjective Subjective Date of Service: 07/25/21 Reason For Visit: major depressive disorder Subjective Notes: Conditional Voluntary Healthcare Proxy: No Guardianship: No Medical Problems Affecting Mental Status: No Interim History: Angry, wanting to leave. Difficulty with active, tense milieu. Review of meds, treatment plan, offer of a TDN which pt declined. Discussed events post OD indicating need to complete antibiotics and steroids-pt refuses steroids will complete antibiotics. Demanding that Methadone be returned to 70 mg daily. Discussed having a couples meeting to review return home (pt reports she has contacted him, there is no restraining order and she has asked him to return home) which he agrees with. Pt agrees with current plan. Medication Compliance: Yes Side effects from medications: No Attending Groups: Intermittent Review of Systems Acute medical concerns: No Medical Review of Systems: unchanged Review of Systems Review of Systems Yes all other systems are reviewed and are negative Reports behavioral changes Psychiatric: Reports anxiety, Reports behavioral changes, Reports depression, Reports difficulty concentrating, Reports hopelessness, Reports irritability, Reports anhedonia, Reports mood swings, Reports paranoia and Reports suicidal ideation Mental Status Exam Mental Status Exam Patient Appearance: Appropriate Patient Orientation: Person, Place, Time and Situation Level of Consciousness: Alert Patient Behavior: Talkative and Good Eye Contact Mood Description: Suspicious, Depressed, Anxious, Nervous and Apprehensive Affect Description: Flat Patient Cognition Impaired: No Ability to Follow Directions: Good Speech Pattern: Spontaneous Speech Memory Description: Episodic Impaired Hallucinations: None Delusions: Paranoid Ideation Perceptual Disturbances: Depersonalization and Derealization Thought Process: Distracted and Rumination Thought Content: positive for Circumstantial and positive for Suicidal Ideation Depressive Symptoms: Increased Anxiety, Increased Irritability, Hopelessness, Unhappiness and Thoughts of /Suicide Abnormal Motor Activity Signs and Symptoms: Restlessness Judgement: Fair Diagnostics Vital Signs (24Hr): Vital Signs - 24 hr 07/24/21 20:10 Temperature 96.7 F L Pulse Rate 114 H Blood Pressure 114/62 BMI result Body Mass Index 35.5 Medications Medications Current Medications Acetaminophen (Acetaminophen 325 Mg Tablet) 650 mg PO Q6H PRN PRN Reason: Headache/Pain Mild Scale (1-3) Al Hydroxide/Mg Hydroxide (Magnesium Hydrox/Alum Hydrox 30 Ml Oral.Susp) 30 ml PO Q6H PRN PRN Reason: Heartburn/Nausea Albuterol Sulfate (Albuterol Sulfate 90 Mcg 8 Gm Inhaler) 2 puff INHALE RQ4H PRN PRN Reason: Shortness of Breath/Wheezing Aripiprazole (Aripiprazole 5 Mg Tablet) 5 mg PO DAILY [facility] Last Admin: 07/25/21 13:22 Dose: 5 mg Clonazepam (Clonazepam 1 Mg Tablet) 1 mg PO BID PRN PRN Reason: Anxiety Docusate Sodium (Docusate Sodium 100 Mg Capsule) 100 mg PO BID PRN PRN Reason: constipation Doxycycline Hyclate (Doxycycline Hyclate 100 Mg Tablet) 100 mg PO Q12H [facility] Stop: 07/29/21 09:00 Last Admin: 07/25/21 06:52 Dose: 100 mg Fluoxetine HCl (Fluoxetine Hcl 10 Mg Capsule) 30 mg PO DAILY [facility] Last Admin: 07/25/21 13:22 Dose: 30 mg Hydroxyzine HCl (Hydroxyzine Hcl 25 Mg Tablet) 25 mg PO Q8H PRN PRN Reason: Anxiety Last Admin: 07/25/21 09:22 Dose: 25 mg Lorazepam (Lorazepam 1 Mg Tablet) 1 mg PO DAILY PRN PRN Reason: panic anxiety Last Admin: 07/25/21 14:35 Dose: 1 mg Magnesium Hydroxide (Milk Of Magnesia 30 Ml Oral.Susp) 30 ml PO DAILY PRN PRN Reason: Constipation Methadone HCl (Methadone Hcl 20 Mg/2 Ml Oral.Conc) 70 mg PO DAILY [facility] Nicotine (Nicotine 21 Mg Patch.Td24) 21 mg TRANSDERMA DAILY [facility] Last Admin: 07/25/21 11:38 Dose: Not Given Olanzapine (Olanzapine 5 Mg Tablet) 5 mg PO Q4H PRN PRN Reason: Anxiety Last Admin: 07/25/21 12:21 Dose: 5 mg Omeprazole (Omeprazole 40 Mg Capsule.Dr) 40 mg PO DAILY@0630 [facility] Last Admin: 07/25/21 06:51 Dose: 40 mg Prazosin HCl (Prazosin Hcl 1 Mg Capsule) 1 mg PO BEDTIME [facility]; Protocol Last Admin: 07/24/21 20:13 Dose: 1 mg Zolpidem Tartrate (Zolpidem Tartrate 5 Mg Tablet) 5 mg PO BEDTIME PRN PRN Reason: Insomnia Allergies Allergies Allergy/AdvReac Type Severity Reaction Status Date / Time shellfish Allergy Unknown anaphylaxis Verified 01/07/20 03:36 shellfish derived Allergy Unknown SWELLING Verified 01/07/20 03:36 [SHELLFISH DERIVED] fluticasone [Flovent HFA] AdvReac Unknown anxiety Verified 01/07/20 03:36 Assessment & Plan Assessment & Plan (1) Recurrent major depression-severe: Status: Acute Code(s): F33.2 - Major depressive disorder, recurrent severe without psychotic features I spent minutes with the patient and/or on the patient floor today, greater than?50% of which was spent counseling/coordinating care. Patient educated on: medication risk/benefits, therapeutic strategies and medical condition Informed Consent: understands and further education needed Reason for contiued inpatient stay Substantial Risk for: harm to self, inability to function and rapid decompensation
[2021-07-25 18:00] VITALS: BP 126/85; PULSE 85; RESP 16; TEMP 37.2; O2SAT 98
[2021-07-25] MEDS: Zolpidem Tartrate 5 MG TABLET PO (19:34)
[2021-07-25] MEDS: Prazosin HCL 1 MG CAPSULE PO (19:34)
[2021-07-26] MEDS: Omeprazole 40 MG CAPSULE.DR PO (06:43)
[2021-07-26] MEDS: FLUoxetine HCl 10 MG CAPSULE 30 MG PO (08:18)
[2021-07-26] MEDS: methADONE HCl 20 MG/2 ML ORAL.CONC 70 MG PO (08:18)
[2021-07-26] MEDS: ARIPiprazole 5 MG TABLET PO (08:18)
[2021-07-26] MEDS: clonazePAM 1 MG TABLET PO ×2 (08:31→19:00)
[2021-07-26] MEDS: Albuterol Sulfate 90 MCG 8 GM INHALER 2 PUFF INHALE (09:50)
[2021-07-26 10:37] VITALS: BP 124/68; PULSE 101; TEMP 36.2; O2SAT 96
[2021-07-26] MEDS: LORazepam 1 MG TABLET PO (12:53)
--- NOTE | 2021-07-26 17:29 | P.PNPSI_ITS ---
Subjective Subjective Date of Service: 07/26/21 Reason For Visit: major depressive disorder Interim History: pt difficult to engage. Said he has ok patient kept back to advertising copy writer and refused to engage further Patient was challenge, provoked and even threatened by a peer; patient got angry and made verbal comments back in defense however patient was able to be redirected. Patient did not want to talk to advertising copy writer about it at all Mental Status Exam Mental Status Exam Patient Appearance: Appropriate Patient Orientation: Person, Place, Time and Situation Level of Consciousness: Alert Patient Behavior: Guarded and Poor Eye Contact Mood Description: Suspicious, Depressed, Anxious, Nervous and Apprehensive Affect Description: Constricted Patient Cognition Impaired: No Ability to Follow Directions: Fair Speech Pattern: Spontaneous Speech Memory Description: Episodic Impaired Hallucinations: None Delusions: Paranoid Ideation Perceptual Disturbances: Depersonalization and Derealization Thought Process: Distracted and Rumination Thought Content: positive for Circumstantial, positive for Suicidal Ideation (denies) and positive for Homicidal Ideation (denies) Depressive Symptoms: Increased Anxiety, Increased Irritability, Hopelessness, U nhappiness and Thoughts of /Suicide (denies) Abnormal Motor Activity Signs and Symptoms: Restlessness Judgement: Fair Diagnostics Vital Signs (24Hr): Vital Signs - 24 hr 07/25/21 18:00 07/26/21 10:37 Temperature 98.9 F 97.2 F Pulse Rate 85 101 H Respiratory Rate 16 Blood Pressure 126/85 124/68 Pulse Oximetry 98 96 Oxygen Delivery Method Room Air Room Air BMI result Body Mass Index 35.5 Medications Medications Current Medications Acetaminophen (Acetaminophen 325 Mg Tablet) 650 mg PO Q6H PRN PRN Reason: Headache/Pain Mild Scale (1-3) Al Hydroxide/Mg Hydroxide (Magnesium Hydrox/Alum Hydrox 30 Ml Oral.Susp) 30 ml PO Q6H PRN PRN Reason: Heartburn/Nausea Albuterol Sulfate (Albuterol Sulfate 90 Mcg 8 Gm Inhaler) 2 puff INHALE RQ4H PRN PRN Reason: Shortness of Breath/Wheezing Last Admin: 07/26/21 09:50 Dose: 2 puff Aripiprazole (Aripiprazole 5 Mg Tablet) 5 mg PO DAILY [facility] Last Admin: 07/26/21 08:18 Dose: 5 mg Clonazepam (Clonazepam 1 Mg Tablet) 1 mg PO BID PRN PRN Reason: Anxiety Last Admin: 07/26/21 08:31 Dose: 1 mg Docusate Sodium (Docusate Sodium 100 Mg Capsule) 100 mg PO BID PRN PRN Reason: constipation Doxycycline Hyclate (Doxycycline Hyclate 100 Mg Tablet) 100 mg PO Q12H [facility] Last Admin: 07/26/21 08:19 Dose: 100 mg Fluoxetine HCl (Fluoxetine Hcl 10 Mg Capsule) 30 mg PO DAILY [facility] Last Admin: 07/26/21 08:18 Dose: 30 mg Hydroxyzine HCl (Hydroxyzine Hcl 25 Mg Tablet) 25 mg PO Q8H PRN PRN Reason: Anxiety Last Admin: 07/25/21 19:34 Dose: 25 mg Lorazepam (Lorazepam 1 Mg Tablet) 1 mg PO DAILY PRN PRN Reason: panic anxiety Last Admin: 07/26/21 12:53 Dose: 1 mg Magnesium Hydroxide (Milk Of Magnesia 30 Ml Oral.Susp) 30 ml PO DAILY PRN PRN Reason: Constipation Methadone HCl (Methadone Hcl 20 Mg/2 Ml Oral.Conc) 70 mg PO DAILY [facility] Last Admin: 07/26/21 08:18 Dose: 70 mg Nicotine Polacrilex (Nicotine Polacrilex 2 Mg Gum) 4 mg BUCCAL Q2H PRN PRN Reason: Nicotine Cravings Olanzapine (Olanzapine 5 Mg Tablet) 5 mg PO Q4H PRN PRN Reason: Anxiety Last Admin: 07/25/21 12:21 Dose: 5 mg Omeprazole (Omeprazole 40 Mg Capsule.Dr) 40 mg PO DAILY@0630 [facility] Last Admin: 07/26/21 06:43 Dose: 40 mg Prazosin HCl (Prazosin Hcl 1 Mg Capsule) 1 mg PO BEDTIME [facility]; Protocol Last Admin: 07/25/21 19:34 Dose: 1 mg Zolpidem Tartrate (Zolpidem Tartrate 5 Mg Tablet) 5 mg PO BEDTIME PRN PRN Reason: Insomnia Last Admin: 07/25/21 19:34 Dose: 5 mg Allergies Allergies Allergy/AdvReac Type Severity Reaction Status Date / Time shellfish Allergy Unknown anaphylaxis Verified 01/07/20 03:36 shellfish derived Allergy Unknown SWELLING Verified 01/07/20 03:36 [SHELLFISH DERIVED] fluticasone [Flovent HFA] AdvReac Unknown anxiety Verified 01/07/20 03:36 Assessment & Plan Assessment & Plan (1) Recurrent major depression-severe: Status: Acute Code(s): F33.2 - Major depressive disorder, recurrent severe without psychotic features Plan 40 yo male, s/p significant overdose in suicide attempt after relapse. Precipitant appears to be a break up with girlfriend after they relapsed together and the situation became out of control with violence and police involvement. Pt is wanting transition to a [facility] and willing to regain sobriety and emotional stability. Plan: Continue current regime. Collateral contacts-?couples meeting if there is no restraining order active Contact with probation Medication eval Diagnostics as needed 07/26 does not want to engage with advertising copy writer; defensively got into an a verbal altercation the nearly escalated to physical when he was threatened by peer. However patient was able to be redirected I spent minutes with the patient and/or on the patient floor today, greater than?50% of which was spent counseling/coordinating care. Reason for contiued inpatient stay Substantial Risk for: rapid decompensation
[2021-07-26 18:00] VITALS: BP 147/92; PULSE 70; RESP 18; TEMP 37.1; O2SAT 97
[2021-07-26] MEDS: Prazosin HCL 1 MG CAPSULE PO (19:00)
[2021-07-26] MEDS: Zolpidem Tartrate 5 MG TABLET PO (19:00)
[2021-07-27 06:00] VITALS: BP 123/77; PULSE 77; RESP 14; TEMP 36.9; O2SAT 96
[2021-07-27] MEDS: Omeprazole 40 MG CAPSULE.DR PO (08:04)
[2021-07-27] MEDS: methADONE HCl 20 MG/2 ML ORAL.CONC 70 MG PO (08:04)
[2021-07-27] MEDS: ARIPiprazole 5 MG TABLET PO (08:05)
[2021-07-27] MEDS: clonazePAM 1 MG TABLET PO ×2 (08:20→19:05)
[2021-07-27] MEDS: Albuterol Sulfate 90 MCG 8 GM INHALER 2 PUFF INHALE (08:21)
[2021-07-27] MEDS: Nicotine Polacrilex 2 MG GUM 4 MG BUCCAL ×3 (08:21→19:05)
--- NOTE | 2021-07-27 16:24 | HO.PSYCHPN ---
Subjective Subjective Date of Service: 07/27/21 Reason For Visit: major depressive disorder Interim History: Late entry note for patient seen 07/27 Patient again did not want to engage with screen writer. Initially he said I'm okay as screen writer made further inquiry he said I said I'm okay. Interview concluded Mental Status Exam Mental Status Exam Patient Appearance: Appropriate Patient Orientation: Person, Place, Time and Situation Level of Consciousness: Alert Patient Behavior: Guarded and Poor Eye Contact Mood Description: Suspicious, Depressed, Anxious, Nervous and Apprehensive Affect Description: Constricted Patient Cognition Impaired: No Ability to Follow Directions: Fair Speech Pattern: Spontaneous Speech Memory Description: Episodic Impaired Hallucinations: None Delusions: Paranoid Ideation Perceptual Disturbances: Depersonalization and Derealization Thought Process: Distracted and Rumination Thought Content: positive for Circumstantial, positive for Suicidal Ideation (denies) and positive for Homicidal Ideation (denies) Depressive Symptoms: Increased Anxiety, Increased Irritability, Hopelessness, Unhappiness and Thoughts of /Suicide (denies) Abnormal Motor Activity Signs and Symptoms: Restlessness Judgement: Fair Diagnostics Vital Signs (24Hr): Vital Signs - 24 hr 07/27/21 18:00 07/28/21 06:00 Temperature 97.0 F 98.2 F Pulse Rate 99 96 Respiratory Rate 18 Blood Pressure 99/63 128/72 Pulse Oximetry 96 96 Oxygen Delivery Method Room Air BMI result Body Mass Index 35.5 Medications Medications Current Medications Acetaminophen (Acetaminophen 325 Mg Tablet) 650 mg PO Q6H PRN PRN Reason: Headache/Pain Mild Scale (1-3) Al Hydroxide/Mg Hydroxide (Magnesium Hydrox/Alum Hydrox 30 Ml Oral.Susp) 30 ml PO Q6H PRN PRN Reason: Heartburn/Nausea Albuterol Sulfate (Albuterol Sulfate 90 Mcg 8 Gm Inhaler) 2 puff INHALE RQ4H PRN PRN Reason: Shortness of Breath/Wheezing Last Admin: 07/28/21 08:40 Dose: 2 puff Aripiprazole (Aripiprazole 5 Mg Tablet) 5 mg PO DAILY [facility] Last Admin: 07/28/21 08:40 Dose: 5 mg Clonazepam (Clonazepam 1 Mg Tablet) 1 mg PO BID PRN PRN Reason: Anxiety Last Admin: 07/28/21 08:40 Dose: 1 mg Docusate Sodium (Docusate Sodium 100 Mg Capsule) 100 mg PO BID PRN PRN Reason: constipation Doxycycline Hyclate (Doxycycline Hyclate 100 Mg Tablet) 100 mg PO Q12H [facility] Last Admin: 07/28/21 08:40 Dose: 100 mg Fluoxetine HCl (Fluoxetine Hcl 10 Mg Capsule) 30 mg PO DAILY [facility] Last Admin: 07/28/21 08:40 Dose: 30 mg Hydroxyzine HCl (Hydroxyzine Hcl 25 Mg Tablet) 25 mg PO Q8H PRN PRN Reason: Anxiety Last Admin: 07/25/21 19:34 Dose: 25 mg Lorazepam (Lorazepam 1 Mg Tablet) 1 mg PO DAILY PRN PRN Reason: panic anxiety Last Admin: 07/26/21 12:53 Dose: 1 mg Magnesium Hydroxide (Milk Of Magnesia 30 Ml Oral.Susp) 30 ml PO DAILY PRN PRN Reason: Constipation Methadone HCl (Methadone Hcl 20 Mg/2 Ml Oral.Conc) 70 mg PO DAILY [facility] Last Admin: 07/28/21 08:40 Dose: 70 mg Nicotine Polacrilex (Nicotine Polacrilex 2 Mg Gum) 4 mg BUCCAL Q2H PRN PRN Reason: Nicotine Cravings Last Admin: 07/28/21 08:40 Dose: 4 mg Olanzapine (Olanzapine 5 Mg Tablet) 5 mg PO Q4H PRN PRN Reason: Anxiety Last Admin: 07/27/21 19:06 Dose: 5 mg Omeprazole (Omeprazole 40 Mg Capsule.Dr) 40 mg PO DAILY@0630 [facility] Last Admin: 07/28/21 06:21 Dose: 40 mg Prazosin HCl (Prazosin Hcl 1 Mg Capsule) 1 mg PO BEDTIME [facility]; Protocol Last Admin: 07/27/21 19:04 Dose: 1 mg Zolpidem Tartrate (Zolpidem Tartrate 5 Mg Tablet) 5 mg PO BEDTIME PRN PRN Reason: Insomnia Last Admin: 07/27/21 19:06 Dose: 5 mg Allergies Allergies Allergy/AdvReac Type Severity Reaction Status Date / Time shellfish Allergy Unknown anaphylaxis Verified 01/07/20 03:36 shellfish derived Allergy Unknown SWELLING Verified 01/07/20 03:36 [SHELLFISH DERIVED] fluticasone [Flovent HFA] AdvReac Unknown anxiety Verified 01/07/20 03:36 Assessment & Plan Assessment & Plan (1) Recurrent major depression-severe: Status: Acute Code(s): F33.2 - Major depressive disorder, recurrent severe without psychotic features Plan 40 yo male, s/p significant overdose in suicide attempt after relapse. Precipitant appears to be a break up with girlfriend after they relapsed together and the situation became out of control with violence and police involvement. Pt is wanting transition to a [facility] and willing to regain sobriety and emotional stability. Plan: Continue current regime. Collateral contacts-?couples meeting if there is no restraining order active Contact with probation Medication eval Diagnostics as needed 07/26 does not want to engage with screen writer; defensively got into an a verbal altercation the nearly escalated to physical when he was threatened by peer. However patient was able to be redirected 07/27 refused to engage; staff reports and behavioral control I spent minutes with the patient and/or on the patient floor today, greater than?50% of which was spent counseling/coordinating care. Reason for contiued inpatient stay Substantial Risk for: rapid decompensation
[2021-07-27 18:00] VITALS: BP 99/63; PULSE 99; TEMP 36.1; O2SAT 96
[2021-07-27] MEDS: Prazosin HCL 1 MG CAPSULE PO (19:04)
[2021-07-27] MEDS: OLANZapine 5 MG TABLET PO (19:06)
[2021-07-27] MEDS: Zolpidem Tartrate 5 MG TABLET PO (19:06)
[2021-07-28 06:00] VITALS: BP 128/72; PULSE 96; RESP 18; TEMP 36.8; O2SAT 96
[2021-07-28] MEDS: Omeprazole 40 MG CAPSULE.DR PO (06:21)
[2021-07-28] MEDS: Nicotine Polacrilex 2 MG GUM 4 MG BUCCAL ×2 (08:40→16:30)
[2021-07-28] MEDS: Albuterol Sulfate 90 MCG 8 GM INHALER 2 PUFF INHALE (08:40)
[2021-07-28] MEDS: methADONE HCl 20 MG/2 ML ORAL.CONC 70 MG PO (08:40)
[2021-07-28] MEDS: clonazePAM 1 MG TABLET PO ×2 (08:40→18:48)
[2021-07-28] MEDS: FLUoxetine HCl 10 MG CAPSULE 30 MG PO (08:40)
[2021-07-28] MEDS: ARIPiprazole 5 MG TABLET PO (08:40)
[2021-07-28] MEDS: hydrOXYzine HCL 25 MG TABLET PO (12:45)
[2021-07-28] MEDS: LORazepam 1 MG TABLET PO (12:45)
[2021-07-28] MEDS: OLANZapine 5 MG TABLET PO (16:28)
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
[2021-07-28 18:39] VITALS: BP 129/91; PULSE 97
[2021-07-28] MEDS: Prazosin HCL 1 MG CAPSULE PO (18:48)
[2021-07-28] MEDS: OXcarbazepine 300 MG TABLET 600 MG PO (18:48)
[2021-07-28] MEDS: Zolpidem Tartrate 5 MG TABLET PO (18:50)
[2021-07-29] MEDS: Omeprazole 40 MG CAPSULE.DR PO (06:11)
[2021-07-29] MEDS: methADONE HCl 20 MG/2 ML ORAL.CONC 70 MG PO (08:30)
[2021-07-29] MEDS: clonazePAM 1 MG TABLET PO ×2 (08:30→19:38)
[2021-07-29] MEDS: ARIPiprazole 10 MG TABLET PO (08:30)
[2021-07-29] MEDS: FLUoxetine HCl 10 MG CAPSULE 30 MG PO (08:30)
[2021-07-29] MEDS: Albuterol Sulfate 90 MCG 8 GM INHALER 2 PUFF INHALE (08:30)
[2021-07-29] MEDS: Multivitamin TABLET 1 TAB PO (08:30)
[2021-07-29] MEDS: Nicotine Polacrilex 2 MG GUM 4 MG BUCCAL (08:31)
[2021-07-29 10:00] VITALS: BP 126/82; PULSE 92; TEMP 36.2; O2SAT 97
[2021-07-29] MEDS: hydrOXYzine HCL 25 MG TABLET PO (13:10)
[2021-07-29] MEDS: LORazepam 1 MG TABLET PO (13:10)
[2021-07-29 19:25] VITALS: BP 137/85; PULSE 85
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
[2021-07-29] MEDS: OXcarbazepine 300 MG TABLET 600 MG PO (19:38)
[2021-07-29] MEDS: Prazosin HCL 1 MG CAPSULE PO (19:38)
[2021-07-29] MEDS: Zolpidem Tartrate 5 MG TABLET PO (19:38)
[2021-07-30] MEDS: clonazePAM 1 MG TABLET PO ×2 (08:36→19:05)
[2021-07-30] MEDS: Omeprazole 40 MG CAPSULE.DR PO (08:36)
[2021-07-30] MEDS: FLUoxetine HCl 10 MG CAPSULE 30 MG PO (08:36)
[2021-07-30] MEDS: ARIPiprazole 10 MG TABLET PO (08:36)
[2021-07-30] MEDS: methADONE HCl 20 MG/2 ML ORAL.CONC 70 MG PO (08:36)
[2021-07-30] MEDS: Nicotine Polacrilex 2 MG GUM 4 MG BUCCAL (08:36)
[2021-07-30] MEDS: Multivitamin TABLET 1 TAB PO (08:36)
[2021-07-30] MEDS: LORazepam 1 MG TABLET PO (12:51)
[2021-07-30] MEDS: hydrOXYzine HCL 25 MG TABLET PO (12:51)
[2021-07-30 13:24] VITALS: BP 122/82; PULSE 91; TEMP 35.9; O2SAT 96
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
[2021-07-30 19:05] VITALS: BP 148/69; PULSE 72; TEMP 36.2; O2SAT 97
[2021-07-30] MEDS: Prazosin HCL 1 MG CAPSULE PO (19:05)
[2021-07-30] MEDS: Zolpidem Tartrate 5 MG TABLET PO (19:06)
[2021-07-30] MEDS: OXcarbazepine 300 MG TABLET 600 MG PO (19:06)
[2021-07-30] MEDS: OLANZapine 5 MG TABLET PO (19:07)
[2021-07-30 21:55] VITALS: BP 131/87; PULSE 69
[2021-07-31 07:00] VITALS: BMI 38.0
[2021-07-31 07:30] VITALS: BP 131/72; PULSE 77; RESP 16; TEMP 36.2; O2SAT 97
[2021-07-31] MEDS: ARIPiprazole 10 MG TABLET PO (07:45)
[2021-07-31] MEDS: Omeprazole 40 MG CAPSULE.DR PO (07:46)
[2021-07-31] MEDS: FLUoxetine HCl 10 MG CAPSULE 30 MG PO (07:46)
[2021-07-31] MEDS: Multivitamin TABLET 1 TAB PO (07:46)
[2021-07-31] MEDS: methADONE HCl 20 MG/2 ML ORAL.CONC 70 MG PO (07:46)
[2021-07-31] MEDS: Nicotine Polacrilex 2 MG GUM 4 MG BUCCAL (08:12)
[2021-07-31] MEDS: clonazePAM 1 MG TABLET PO ×2 (08:12→12:59)
[2021-07-31] MEDS: Albuterol Sulfate 90 MCG 8 GM INHALER 2 PUFF INHALE (08:12)
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
[2021-07-31 19:05] VITALS: BP 120/79; PULSE 77
[2021-07-31] MEDS: Zolpidem Tartrate 5 MG TABLET PO (19:08)
[2021-07-31] MEDS: Prazosin HCL 1 MG CAPSULE PO (19:08)
[2021-07-31] MEDS: LORazepam 1 MG TABLET PO (19:08)
[2021-07-31] MEDS: OXcarbazepine 300 MG TABLET 600 MG PO (19:08)
[2021-08-01] MEDS: Multivitamin TABLET 1 TAB PO (08:37)
[2021-08-01] MEDS: ARIPiprazole 10 MG TABLET PO (08:37)
[2021-08-01] MEDS: FLUoxetine HCl 10 MG CAPSULE 30 MG PO (08:38)
[2021-08-01] MEDS: Omeprazole 40 MG CAPSULE.DR PO (08:38)
[2021-08-01] MEDS: methADONE HCl 20 MG/2 ML ORAL.CONC 70 MG PO (08:42)
[2021-08-01] MEDS: Albuterol Sulfate 90 MCG 8 GM INHALER 2 PUFF INHALE (08:44)
[2021-08-01] MEDS: OLANZapine 5 MG TABLET PO (09:26)
[2021-08-01] MEDS: clonazePAM 1 MG TABLET PO ×2 (09:26→13:19)
[2021-08-01] MEDS: Nicotine Polacrilex 2 MG GUM 4 MG BUCCAL ×2 (10:39→13:19)
[2021-08-01 13:05] VITALS: BP 118/76; PULSE 92; RESP 16; TEMP 36.6; O2SAT 98
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
[2021-08-01] MEDS: LORazepam 1 MG TABLET PO (19:37)
[2021-08-01] MEDS: Prazosin HCL 1 MG CAPSULE PO (19:37)
[2021-08-01] MEDS: Zolpidem Tartrate 5 MG TABLET 10 MG PO (19:38)
[2021-08-01] MEDS: Mirtazapine 15 MG TABLET PO (19:38)
[2021-08-01] MEDS: OXcarbazepine 300 MG TABLET 600 MG PO (19:38)
[2021-08-01 19:43] VITALS: BP 122/77; PULSE 95
[2021-08-02 06:00] VITALS: BP 119/72; PULSE 89; RESP 16; TEMP 36.3; O2SAT 98
[2021-08-02] MEDS: Omeprazole 40 MG CAPSULE.DR PO (06:27)
[2021-08-02] MEDS: ARIPiprazole 10 MG TABLET PO (08:45)
[2021-08-02] MEDS: Nicotine Polacrilex 2 MG GUM 4 MG BUCCAL ×2 (08:45→13:10)
[2021-08-02] MEDS: Multivitamin TABLET 1 TAB PO (08:45)
[2021-08-02] MEDS: clonazePAM 1 MG TABLET PO ×2 (08:46→13:15)
[2021-08-02] MEDS: FLUoxetine HCl 10 MG CAPSULE 30 MG PO (08:46)
[2021-08-02] MEDS: methADONE HCl 20 MG/2 ML ORAL.CONC 70 MG PO (08:48)
[2021-08-02] MEDS: Albuterol Sulfate 90 MCG 8 GM INHALER 2 PUFF INHALE (09:21)
[2021-08-02] MEDS: OLANZapine 5 MG TABLET PO ×2 (13:10→18:45)
[2021-08-02 18:44] VITALS: BP 105/69; PULSE 83
[2021-08-02] MEDS: Zolpidem Tartrate 5 MG TABLET 10 MG PO (18:45)
[2021-08-02] MEDS: OXcarbazepine 300 MG TABLET 600 MG PO (18:45)
[2021-08-02] MEDS: Prazosin HCL 1 MG CAPSULE 2 MG PO (18:45)
[2021-08-02] MEDS: LORazepam 1 MG TABLET PO (18:45)
[2021-08-02] MEDS: Mirtazapine 15 MG TABLET PO (18:46)
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
[2021-08-03] MEDS: Omeprazole 40 MG CAPSULE.DR PO (04:46)
[2021-08-03 06:00] VITALS: BP 116/73; PULSE 93; RESP 16; TEMP 36.5; O2SAT 98
[2021-08-03] MEDS: FLUoxetine HCl 10 MG CAPSULE 30 MG PO (08:45)
[2021-08-03] MEDS: methADONE HCl 20 MG/2 ML ORAL.CONC 70 MG PO (08:45)
[2021-08-03] MEDS: ARIPiprazole 10 MG TABLET PO (08:45)
[2021-08-03] MEDS: Nicotine Polacrilex 2 MG GUM 4 MG BUCCAL ×3 (08:46→16:46)
[2021-08-03] MEDS: Multivitamin TABLET 1 TAB PO (08:46)
[2021-08-03] MEDS: clonazePAM 1 MG TABLET PO ×2 (08:46→13:08)
[2021-08-03] MEDS: Albuterol Sulfate 90 MCG 8 GM INHALER 2 PUFF INHALE (08:49)
[2021-08-03] MEDS: OLANZapine 5 MG TABLET PO ×2 (13:12→18:53)
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
[2021-08-03] MEDS: LORazepam 1 MG TABLET PO (18:52)
[2021-08-03] MEDS: Prazosin HCL 1 MG CAPSULE 2 MG PO (18:52)
[2021-08-03] MEDS: OXcarbazepine 300 MG TABLET 600 MG PO (18:53)
[2021-08-03] MEDS: Mirtazapine 15 MG TABLET PO (18:53)
[2021-08-03] MEDS: Zolpidem Tartrate 5 MG TABLET 10 MG PO (18:53)
[2021-08-03 18:56] VITALS: BP 144/99; PULSE 99
[2021-08-04] MEDS: Omeprazole 40 MG CAPSULE.DR PO (05:53)
[2021-08-04 06:00] VITALS: BP 118/74; PULSE 91; RESP 16; TEMP 36.6; O2SAT 98
[2021-08-04] MEDS: Nicotine Polacrilex 2 MG GUM 4 MG BUCCAL (08:08)
[2021-08-04] MEDS: clonazePAM 1 MG TABLET PO ×2 (08:08→12:31)
[2021-08-04] MEDS: ARIPiprazole 10 MG TABLET PO (08:08)
[2021-08-04] MEDS: FLUoxetine HCl 10 MG CAPSULE 30 MG PO (08:08)
[2021-08-04] MEDS: methADONE HCl 20 MG/2 ML ORAL.CONC 70 MG PO (08:08)
[2021-08-04] MEDS: Multivitamin TABLET 1 TAB PO (08:08)
[2021-08-04 08:14] VITALS: BP 130/72; PULSE 89; RESP 15; TEMP 36.6; O2SAT 95
[2021-08-04] MEDS: Ibuprofen 600 MG TABLET PO (09:22)
[2021-08-04] MEDS: OLANZapine 5 MG TABLET PO ×2 (12:31→19:03)
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
[2021-08-04 18:00] VITALS: BP 106/64; PULSE 77; RESP 18; TEMP 36.4; O2SAT 96
[2021-08-04] MEDS: LORazepam 1 MG TABLET PO (19:02)
[2021-08-04] MEDS: OXcarbazepine 300 MG TABLET 600 MG PO (19:03)
[2021-08-04] MEDS: Zolpidem Tartrate 5 MG TABLET 10 MG PO (19:03)
[2021-08-04] MEDS: Prazosin HCL 1 MG CAPSULE 2 MG PO (19:04)
[2021-08-04] MEDS: Mirtazapine 15 MG TABLET PO (23:33)
[2021-08-05] MEDS: Omeprazole 40 MG CAPSULE.DR PO (08:30)
[2021-08-05] MEDS: Multivitamin TABLET 1 TAB PO (08:30)
[2021-08-05] MEDS: FLUoxetine HCl 10 MG CAPSULE 30 MG PO (08:30)
[2021-08-05] MEDS: ARIPiprazole 10 MG TABLET PO (08:30)
[2021-08-05] MEDS: Ibuprofen 600 MG TABLET PO (08:30)
[2021-08-05] MEDS: methADONE HCl 20 MG/2 ML ORAL.CONC 70 MG PO (08:31)
[2021-08-05] MEDS: OLANZapine 5 MG TABLET PO ×3 (08:39→18:58)
[2021-08-05] MEDS: clonazePAM 1 MG TABLET PO ×2 (08:39→12:56)
[2021-08-05] MEDS: Nicotine Polacrilex 2 MG GUM 4 MG BUCCAL ×3 (10:21→15:17)
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
[2021-08-05 17:06] VITALS: BP 114/75; PULSE 83; RESP 16; TEMP 36.8; O2SAT 94
[2021-08-05 18:56] VITALS: BP 132/82; PULSE 84
[2021-08-05] MEDS: OXcarbazepine 300 MG TABLET 600 MG PO (18:58)
[2021-08-05] MEDS: Mirtazapine 15 MG TABLET PO (18:58)
[2021-08-05] MEDS: LORazepam 1 MG TABLET PO (18:58)
[2021-08-05] MEDS: Prazosin HCL 1 MG CAPSULE 2 MG PO (18:59)
[2021-08-06] MEDS: methADONE HCl 20 MG/2 ML ORAL.CONC 70 MG PO (08:25)
[2021-08-06] MEDS: OLANZapine 5 MG TABLET PO ×3 (08:25→19:59)
[2021-08-06] MEDS: ARIPiprazole 10 MG TABLET PO (08:25)
[2021-08-06] MEDS: Multivitamin TABLET 1 TAB PO (08:25)
[2021-08-06] MEDS: FLUoxetine HCl 10 MG CAPSULE 30 MG PO (08:25)
[2021-08-06] MEDS: Omeprazole 40 MG CAPSULE.DR PO (08:26)
[2021-08-06] MEDS: clonazePAM 1 MG TABLET PO ×2 (08:26→13:32)
[2021-08-06 08:30] VITALS: BP 120/74; PULSE 91; TEMP 35.8
[2021-08-06] MEDS: Ibuprofen 600 MG TABLET PO (08:39)
[2021-08-06] MEDS: Nicotine Polacrilex 2 MG GUM 4 MG BUCCAL ×2 (09:34→13:32)
--- NOTE | 2021-08-06 12:07 | PC.NURSE ---
Patient reported falling in his room. 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 Patient was walking from his the window to his desk when his foot slipped out from under him and he fell on his left hip and knee. Patient was wearing loss fitting flip flops. Patient reports pain in his left knee and hip, no visible injuries. VSS, BP 131/74 P 98 O2 95% RA. MD and manager income tax notified. Floor dried and pt is ambulating around the unit without difficulty.
[2021-08-06] MEDS: Acetaminophen 325 MG TABLET 650 MG PO (13:31)
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
[2021-08-06 19:55] VITALS: BP 189/86; PULSE 76; TEMP 36.6
[2021-08-06] MEDS: LORazepam 1 MG TABLET PO (19:59)
[2021-08-06] MEDS: OXcarbazepine 300 MG TABLET 600 MG PO (19:59)
[2021-08-06] MEDS: Mirtazapine 15 MG TABLET PO (19:59)
[2021-08-06] MEDS: Zolpidem Tartrate 5 MG TABLET 10 MG PO (20:00)
[2021-08-06] MEDS: Prazosin HCL 1 MG CAPSULE 2 MG PO (20:00)
[2021-08-07 07:51] VITALS: BP 122/70; PULSE 78; TEMP 36.6
[2021-08-07] MEDS: methADONE HCl 20 MG/2 ML ORAL.CONC 70 MG PO (08:35)
[2021-08-07] MEDS: FLUoxetine HCl 10 MG CAPSULE 30 MG PO (08:35)
[2021-08-07] MEDS: Ibuprofen 600 MG TABLET PO (08:35)
[2021-08-07] MEDS: Multivitamin TABLET 1 TAB PO (08:35)
[2021-08-07] MEDS: Omeprazole 40 MG CAPSULE.DR PO (08:36)
[2021-08-07] MEDS: clonazePAM 1 MG TABLET PO ×2 (08:36→19:10)
[2021-08-07] MEDS: OLANZapine 5 MG TABLET PO ×2 (08:36→19:09)
[2021-08-07] MEDS: ARIPiprazole 10 MG TABLET PO (08:36)
[2021-08-07] MEDS: Nicotine Polacrilex 2 MG GUM 4 MG BUCCAL ×2 (08:36→11:36)
[2021-08-07 18:00] VITALS: BP 125/74; PULSE 87; RESP 14; TEMP 36.8
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
[2021-08-07] MEDS: OXcarbazepine 300 MG TABLET 600 MG PO (19:09)
[2021-08-07] MEDS: Prazosin HCL 1 MG CAPSULE 2 MG PO (19:09)
[2021-08-07] MEDS: Mirtazapine 15 MG TABLET PO (19:09)
[2021-08-08 06:00] VITALS: BP 126/76; PULSE 82; RESP 16; TEMP 36.6; O2SAT 97
[2021-08-08] MEDS: methADONE HCl 20 MG/2 ML ORAL.CONC 70 MG PO (08:07)
[2021-08-08] MEDS: Nicotine Polacrilex 2 MG GUM 4 MG BUCCAL ×2 (08:08→13:46)
[2021-08-08] MEDS: Omeprazole 40 MG CAPSULE.DR PO (08:08)
[2021-08-08] MEDS: FLUoxetine HCl 10 MG CAPSULE 30 MG PO (08:09)
[2021-08-08] MEDS: Multivitamin TABLET 1 TAB PO (08:09)
[2021-08-08] MEDS: clonazePAM 1 MG TABLET PO ×3 (08:09→19:00)
[2021-08-08] MEDS: OLANZapine 5 MG TABLET PO ×3 (08:09→18:59)
[2021-08-08] MEDS: ARIPiprazole 10 MG TABLET PO (08:09)
[2021-08-08] MEDS: hydrOXYzine HCL 25 MG TABLET PO (11:26)
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
[2021-08-08 18:00] VITALS: BP 113/69; PULSE 92; RESP 14
[2021-08-08] MEDS: Prazosin HCL 1 MG CAPSULE 2 MG PO (18:59)
[2021-08-08] MEDS: OXcarbazepine 300 MG TABLET 600 MG PO (18:59)
[2021-08-08] MEDS: Mirtazapine 15 MG TABLET PO (18:59)
[2021-08-08] MEDS: Zolpidem Tartrate 5 MG TABLET 10 MG PO (18:59)
[2021-08-09 06:00] VITALS: BP 129/78; PULSE 90; TEMP 36.2; O2SAT 95
[2021-08-09] MEDS: clonazePAM 1 MG TABLET PO ×3 (08:57→18:39)
[2021-08-09] MEDS: FLUoxetine HCl 10 MG CAPSULE 30 MG PO (08:57)
[2021-08-09] MEDS: Omeprazole 40 MG CAPSULE.DR PO (08:57)
[2021-08-09] MEDS: Multivitamin TABLET 1 TAB PO (08:57)
[2021-08-09] MEDS: ARIPiprazole 10 MG TABLET PO (08:57)
[2021-08-09] MEDS: OLANZapine 5 MG TABLET PO ×2 (08:57→13:17)
[2021-08-09] MEDS: Nicotine Polacrilex 2 MG GUM 4 MG BUCCAL ×2 (08:58→14:09)
[2021-08-09] MEDS: methADONE HCl 20 MG/2 ML ORAL.CONC 70 MG PO (08:58)
[2021-08-09] MEDS: Ibuprofen 600 MG TABLET PO (10:00)
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
[2021-08-09 18:30] VITALS: BP 106/66; PULSE 84; TEMP 36.1; O2SAT 97
[2021-08-09] MEDS: OXcarbazepine 300 MG TABLET 600 MG PO (18:38)
[2021-08-09] MEDS: Prazosin HCL 1 MG CAPSULE 2 MG PO (18:39)
[2021-08-09] MEDS: Mirtazapine 15 MG TABLET PO (18:39)
[2021-08-09] MEDS: Zolpidem Tartrate 5 MG TABLET 10 MG PO (18:44)
[2021-08-10] MEDS: FLUoxetine HCl 10 MG CAPSULE 30 MG PO (08:13)
[2021-08-10] MEDS: Multivitamin TABLET 1 TAB PO (08:13)
[2021-08-10] MEDS: Omeprazole 40 MG CAPSULE.DR PO (08:13)
[2021-08-10] MEDS: ARIPiprazole 10 MG TABLET PO (08:13)
[2021-08-10] MEDS: methADONE HCl 20 MG/2 ML ORAL.CONC 70 MG PO (08:13)
[2021-08-10 08:20] VITALS: BP 107/73; PULSE 97; TEMP 36.1; O2SAT 96
[2021-08-10] MEDS: OLANZapine 5 MG TABLET PO (08:34)
[2021-08-10] MEDS: clonazePAM 1 MG TABLET PO (08:34)
[2021-08-10] MEDS: Ibuprofen 600 MG TABLET PO (08:34)
[2021-08-10] MEDS: Nicotine Polacrilex 2 MG GUM 4 MG BUCCAL ×2 (08:35→11:17)
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
[2021-08-10] MEDS: cloNIDine HCL 0.2 MG TABLET PO ×2 (13:12→19:40)
[2021-08-10 13:17] VITALS: BP 123/67; PULSE 89
[2021-08-10] MEDS: OXcarbazepine 300 MG TABLET 600 MG PO (19:40)
[2021-08-10] MEDS: Prazosin HCL 1 MG CAPSULE 2 MG PO (19:40)
[2021-08-11] MEDS: Mirtazapine 15 MG TABLET PO (00:10)
[2021-08-11 08:15] VITALS: BP 103/59; PULSE 93; RESP 18; TEMP 36.4; O2SAT 96
[2021-08-11] MEDS: cloNIDine HCL 0.2 MG TABLET PO ×2 (08:53→18:55)
[2021-08-11] MEDS: clonazePAM 1 MG TABLET PO ×3 (08:53→18:55)
[2021-08-11] MEDS: OLANZapine 5 MG TABLET PO ×2 (08:53→18:56)
[2021-08-11] MEDS: ARIPiprazole 10 MG TABLET PO (08:53)
[2021-08-11] MEDS: methADONE HCl 20 MG/2 ML ORAL.CONC 70 MG PO (08:53)
[2021-08-11] MEDS: Multivitamin TABLET 1 TAB PO (08:53)
[2021-08-11] MEDS: FLUoxetine HCl 10 MG CAPSULE 30 MG PO (08:53)
[2021-08-11] MEDS: Omeprazole 40 MG CAPSULE.DR PO (08:53)
[2021-08-11] MEDS: Ibuprofen 600 MG TABLET PO ×2 (11:46→18:56)
[2021-08-11] MEDS: Albuterol Sulfate 90 MCG 8 GM INHALER 2 PUFF INHALE (12:36)
[2021-08-11] MEDS: Nicotine Polacrilex 2 MG GUM 4 MG BUCCAL (14:52)
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
[2021-08-11 18:50] VITALS: BP 123/69; PULSE 84; RESP 14; TEMP 36.3
[2021-08-11] MEDS: Prazosin HCL 1 MG CAPSULE 2 MG PO (18:55)
[2021-08-11] MEDS: OXcarbazepine 300 MG TABLET 600 MG PO (18:56)
[2021-08-12] MEDS: ARIPiprazole 10 MG TABLET PO (08:07)
[2021-08-12] MEDS: OLANZapine 5 MG TABLET PO ×3 (08:08→18:44)
[2021-08-12] MEDS: cloNIDine HCL 0.2 MG TABLET PO ×2 (08:08→18:44)
[2021-08-12] MEDS: Multivitamin TABLET 1 TAB PO (08:08)
[2021-08-12] MEDS: clonazePAM 1 MG TABLET PO ×3 (08:08→18:43)
[2021-08-12] MEDS: Omeprazole 40 MG CAPSULE.DR PO ×2 (08:08)
[2021-08-12] MEDS: Ibuprofen 600 MG TABLET PO (08:08)
[2021-08-12] MEDS: FLUoxetine HCl 10 MG CAPSULE 30 MG PO (08:08)
[2021-08-12] MEDS: Nicotine Polacrilex 2 MG GUM 4 MG BUCCAL ×2 (08:09→13:52)
[2021-08-12] MEDS: methADONE HCl 20 MG/2 ML ORAL.CONC 70 MG PO (08:09)
[2021-08-12 08:11] LABS: MANUAL DIFF FLAG NO
[2021-08-12 08:13] LABS: Basophils Absolute Auto 0.1 X10*3/uL (0.0-0.2); Basophils Percent Auto 1.1 % (0-2); Eosinophils Absolute Auto 0.4 X10*3/uL (0.0-0.4); Hematocrit 41.8 % (42.0-52.0); Hemoglobin 13.3 g/dl (14.0-18.0); Imm Gran Abs Auto 0.02 X10*3/uL (0.00-0.03); Imm Gran Pct Auto 0.4 % (0.0-0.4); Lymphocytes Absolute Auto 2.1 X10*3/uL (1.2-4.9); Lymphocytes Percent Auto 36.8 % (20-40); Mean Corpuscular HGB Conc 31.8 g/dl (31.0-36.0); Mean Corpuscular Hemoglobin 27.9 pg (27.0-33.0); Mean Corpuscular Volume 87.6 fL (80.0-98.0); Monocytes Absolute Auto 0.7 X10*3/uL (0.1-1.2); Monocytes Percent Auto 12.3 % (2-11); Neutrophils Absolute Auto 2.4 x10*3/uL (2.0-8.3); Neutrophils Percent Auto 42.4 % (45-73); Platelet Count 164 X10*3/uL (160-400); Red Blood Count 4.77 X10*6/uL (4.60-5.80); Red Cell Distribution Width 13.2 % (11.0-16.0); White Blood Count 5.6 X10*3/uL (4.8-10.8)
[2021-08-12 08:28] LABS: Estimated Average Glucose 123 mg/dL; Hemoglobin A1c % 5.9 %
[2021-08-12 08:31] VITALS: BP 126/64; PULSE 81; TEMP 35.8; O2SAT 95
[2021-08-12 08:35] LABS: Cholesterol 189 mg/dL; HDL Cholesterol 52 mg/dL; Iron 61 mcg/dL (45-160); LDL Cholesterol Calculated 110 mg/dl; Percent Iron Saturation 14 % (15-50); Total Iron Binding Capacity 432 mcg/dL (228-428); Triglycerides 136 mg/dL; Unsaturated Iron Binding 371 ug/dL
[2021-08-12 08:36] LABS: Alanine Aminotransferase 29 U/L (0-40); Alkaline Phosphatase 67 U/L (39-117); Anion Gap 12 (12-20); Aspartate Amino Transferase 24 U/L (5-37); Bilirubin Total 0.2 mg/dL (0.0-1.0); Blood Urea Nitrogen 17 mg/dL (9-16); Calcium 8.9 mg/dL (8.4-10.2); Carbon Dioxide 30 mmol/L (22-29); Chloride 103 mmol/L (96-108); Creatinine Clr Calc Pharmacy 167.4; Estimated Glomerular Filt Rate > 60; Glucose Random 121 mg/dL (60-115); Potassium 4.7 mmol/L (3.3-5.1); Sodium 140 mmol/L (135-145); Total Protein 7.4 g/dL (6.5-8.0)
[2021-08-12 08:55] LABS: Thyroid Stimulating Hormone 1.31 uIU/mL (0.32-4.0)
[2021-08-12 09:18] LABS: Folate 14.4 ng/mL (> or = 4.0); Vitamin B12 381 pg/mL (200-900)
[2021-08-12] MEDS: Albuterol Sulfate 90 MCG 8 GM INHALER 2 PUFF INHALE (12:58)
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
[2021-08-12 18:40] VITALS: BP 105/68; PULSE 75
[2021-08-12] MEDS: OXcarbazepine 300 MG TABLET 600 MG PO (18:43)
[2021-08-12] MEDS: Prazosin HCL 1 MG CAPSULE 2 MG PO (18:43)
[2021-08-12] MEDS: Zolpidem Tartrate 5 MG TABLET 10 MG PO (18:43)
[2021-08-12] MEDS: Mirtazapine 15 MG TABLET PO (18:44)
[2021-08-13] MEDS: clonazePAM 1 MG TABLET PO (05:35)
[2021-08-13] MEDS: Ibuprofen 600 MG TABLET PO (05:35)
[2021-08-13] MEDS: Omeprazole 40 MG CAPSULE.DR PO (05:35)
[2021-08-13 08:27] VITALS: BP 118/75; PULSE 69; RESP 18; TEMP 36.2
[2021-08-13] MEDS: ARIPiprazole 10 MG TABLET PO (08:29)
[2021-08-13] MEDS: Multivitamin TABLET 1 TAB PO (08:29)
[2021-08-13] MEDS: FLUoxetine HCl 10 MG CAPSULE 30 MG PO (08:29)
[2021-08-13] MEDS: cloNIDine HCL 0.2 MG TABLET PO (08:29)
[2021-08-13] MEDS: methADONE HCl 20 MG/2 ML ORAL.CONC 70 MG PO (08:30)
[2021-08-13] MEDS: Nicotine Polacrilex 2 MG GUM 4 MG BUCCAL (09:44)
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
== END 2021-08-13 10:05 | disposition other institution (70) | DRG 751 ==
PROVIDERS: Admitting Provider Psychiatry & Neurology Psychiatry; PCP Internal Medicine; Visit Provider Clinical Nurse Specialist Psychiatric/Mental Health, Adult
DX: F33.2 Major depressive disorder, recurrent severe without psychotic features (principal); F11.20 Opioid dependence, uncomplicated; F14.10 Cocaine abuse, uncomplicated; F17.210 Nicotine dependence, cigarettes, uncomplicated; J45.909 Unspecified asthma, uncomplicated; F41.9 Anxiety disorder, unspecified; Z71.6 Tobacco abuse counseling; Z91.013 Allergy to seafood; Z88.8 Allergy status to other drugs, medicaments and biological substances; Z79.899 Other long term (current) drug therapy
CPT/HCPCS: 36415; 73502; 73564; 80053; 80061; 82607; 82746; 83036; 83540; 84443; 85025